=== PATIENT | female | born 1955 | race Caucasian/White ===

== ENCOUNTER 2018-08-22 22:59 | Inpatient (IN) ==
[2018-08-23 00:16] LABS: Basophils # (Auto) 0 K/mcL (0.0-0.3); Basophils % (Auto) 0.1 % (0.0-2.0); Eosinophils # (Auto) 0.1 K/mcL (0.0-0.7); Eosinophils % (Auto) 0.8 % (0.0-7.0); Granulocytes % (Auto) 75.1 % (38.0-78.0); Lymphocytes # (Auto) 2.4 K/mcL (1.5-4.8); Lymphocytes % (Auto) 17.3 % (15.5-49.0); Mean Cell Volume 91.1 fL (80.0-100.0); Mean Corpuscular HGB Conc 33.7 g/dL (31.0-36.0); Monocytes # (Auto) 0.9 K/mcL (0.1-0.9); Monocytes % (Auto) 6.7 % (1.0-12.0); Platelet Count 269 K/mcL (140-440); RBC 5.08 M/mcL (4.00-5.20); Red Cell Distribution Width 11.9 % (11.5-14.5)
--- NOTE | 2018-08-23 00:33 | Emergency Department Note ---
General Adult HPI - General Chief complaint: Cold/Flu Symptoms Stated complaint: Thinks has Pneumonia Time Seen by Provider: 08/22/18 23:08 - History of Present Illness HPI Narrative: The patient is a 63-year-old female with a history of bipolar disorder and dementia who presents today with complaint of cough, sore throat and feeling poorly. She states that she has a productive cough with phlegm that looks like "butterscotch pudding." She denies any fevers or chills, nausea or vomiting or diarrhea. States that she has lost her voice because of this. Symptoms started last Friday. She has been trying to stay hydrated at home. Has tried jjew-jty-jyiqnsp cough medications like DayQuil and Tylenol with little relief. Brought in today stating "I think I have pneumonia." She denies any underlying respiratory symptoms. - Related Data Home Medications Medication Instructions Recorded Confirmed escitalopram 10 mg tablet 20 mg PO QDAY 07/02/18 08/22/18 omeprazole 20 mg capsule,delayed 20 mg PO BID 07/02/18 08/22/18 release simvastatin 20 mg tablet 20 mg PO QPM 07/02/18 08/22/18 trazodone 100 mg tablet 50 mg PO HS 07/02/18 08/22/18 Aspirin [Lo-Dose Aspirin EC] 81 mg PO DAILY 08/22/18 08/22/18 Levothyroxine [Synthroid] 88 mcg PO QAMAC 08/22/18 08/22/18 Multivit-Min/Iron Fum/Folic AC 1 each PO DAILY 08/22/18 08/22/18 [Nrpjk-Rrvdazp-Efrfohid Tablet] RX: Meloxicam 15 mg PO DAILY 08/22/18 08/22/18 RX: Memantine [Namenda] 5 mg PO BID 08/22/18 08/22/18 lamoTRIgine [LaMICtal] 400 mg PO BID 08/22/18 08/22/18 Liothyronine [Cytomel] 5 mcg PO DAILY 08/23/18 08/23/18 Previous Rx's Medication Instructions Recorded fluticasone propionate 50 2 spray INTRANASAL QDAY #16 g 08/11/18 mcg/actuation nasal spray,suspension Allergies Allergy/AdvReac Type Severity Reaction Status Date / Time codeine AdvReac Intermediate constipation/abdominal Verified 08/11/18 16:52 cramping Review of Systems All systems ED: reviewed and negative except as stated. Past Medical History - Past Medical History Attestation: Yes: The following information was validated with the patient. Medical history: Reports: other (dementia) Psychiatric history: Reports: anxiety, depression, PTSD P[employer]ER history: Reports: non-contributory - Social History smoking status: Current every day smoker Physical Exam Limitations: no limitations, other (voice is very hoarse, whispering) General appearance: alert, in no apparent distress Head: atraumatic Eye: Present: PERRL, EOMI ENT: mucous membranes dry, other (orophyarnx is erythematous, no exudates appreciated) Neck: Present: normal inspection Chest: Present: normal inspection Respiratory: Present: normal lung sounds bilaterally. Absent: respiratory distress, rales/crackles, wheezes, stridor, accessory muscle use Cardiovascular: Present: regular rate, normal rhythm Abdominal: Present: soft, normal bowel sounds. Absent: distention, tenderness, guarding Extremities: Present: normal inspection Back: Present: normal inspection Neurological: Present: alert, oriented X3 Psychiatric: Present: normal affect, normal mood Skin: Present: warm, dry Course Course Narrative: 63-year-old with a one-week history of progressive respiratory symptoms. She comes in with an oxygen saturation of 84% on room air. Requiring 2 L of oxygen via nasal cannula to stay above 90%. Lung exam is actually very clear. Chest x-ray is ordered. IV fluids ordered. Flu swab ordered. Lab work ordered - Reevaluation(s) Reevaluation #1: Patient's white count is elevated to 13.7. Potassium was only 2.9. A potassium rider 40 mEq was started IV. Interestingly the patient's pro-calcitonin is 118 but her lactic was 1.3. She continues to be hypoxic requiring several liters of oxygen via nasal cannula. I personally reviewed the chest x-ray and she does have bronchial wall thickening and congestion appreciated in the right hilar area which I feel look suspicious for a right middle lobe infiltrate. I don't have a previous x-ray to compare this to. With her leukocytosis, hypoxia and chest x-ray that she warrants inpatient admission for community-acquired pneumonia and we'll start the patient on azithromycin and Rocephin. This was discussed with the hospitalist who graciously agreed to admit the patient. Vital Signs Temperature 97.9 F 08/22/18 22:59 Pulse Rate 92 H 08/22/18 22:59 Respiratory Rate 22 08/22/18 22:59 Blood Pressure 130/71 08/22/18 22:59 Pulse Oximetry (%) 84 L 08/22/18 22:59 Temperature 97.9 F 08/22/18 22:59 Pulse Rate 79 08/23/18 00:29 Respiratory Rate 22 08/22/18 22:59 Blood Pressure 130/71 08/22/18 22:59 Pulse Oximetry (%) 88 L 08/23/18 00:29 Medical Decision Making - MDM Narrative Medical decision making narrative: Community-acquired pneumonia and hypoxia - Lab Data Lab results reviewed: Yes I reviewed the patient's lab results. Result diagrams: 08/22/18 23:35 08/22/18 23:35 Lab Results 08/22/18 08/22/18 08/22/18 Range/Units 23:35 23:35 23:35 WBC 13.7 H (4.5-11.0) K/mcL RBC 5.08 (4.00-5.20) M/mcL Hgb 15.6 H (12.0-15.0) g/dL Hct 46.3 (36.0-48.0) % MCV 91.1 (80.0-100.0) fL MCH 30.7 (26.0-34.0) pg MCHC 33.7 (31.0-36.0) g/dL RDW 11.9 (11.5-14.5) % Plt Count 269 (140-440) K/mcL MPV 7.7 (7.4-10.4) fL Gran % 75.1 (38.0-78.0) % Lymph % (Auto) 17.3 (15.5-49.0) % [place] % (Auto) 6.7 (1.0-12.0) % Eos % (Auto) 0.8 (0.0-7.0) % Baso % (Auto) 0.1 (0.0-2.0) % Gran # 10.3 H (1.8-8.0) K/mcL Lymph # (Auto) 2.4 (1.5-4.8) K/mcL [place] # (Auto) 0.9 (0.1-0.9) K/mcL Eos # (Auto) 0.1 (0.0-0.7) K/mcL Baso # (Auto) 0 (0.0-0.3) K/mcL VBG Lactic Acid (0.5-2.0) mmol/L Sodium 134 (133-145) mmol/L Potassium 2.9 L* (3.3-5.1) mmol/L Chloride 94 L (96-108) mmol/L Carbon Dioxide 27 (22-30) mmol/L Anion Gap 13.0 (8-16) BUN 11 (8-23) mg/dl Creatinine 0.6 (0.6-1.1) mg/dl GFR Calculation 96 Glucose 150 H (70-105) mg/dL Calcium 8.4 L (8.6-10.4) mg/dl Total Bilirubin 0.4 (0.0-1.0) mg/dL AST 29 (0-37) U/l ALT 26 (0-40) U/l Alkaline Phosphatase 128 H (39-117) U/L Total Protein 6.2 (5.9-8.4) gm/dL Albumin 3.1 L (3.2-5.2) gm/dL Globulin 3.1 (2.2-3.7) gm/dL Albumin/Globulin Ratio 1.0 (1.0-2.3) Procalcitonin 118.31 (<0.10) ng/mL 08/22/18 Range/Units 23:35 WBC (4.5-11.0) K/mcL RBC (4.00-5.20) M/mcL Hgb (12.0-15.0) g/dL Hct (36.0-48.0) % MCV (80.0-100.0) fL MCH (26.0-34.0) pg MCHC (31.0-36.0) g/dL RDW (11.5-14.5) % Plt Count (140-440) K/mcL MPV (7.4-10.4) fL Gran % (38.0-78.0) % Lymph % (Auto) (15.5-49.0) % [place] % (Auto) (1.0-12.0) % Eos % (Auto) (0.0-7.0) % Baso % (Auto) (0.0-2.0) % Gran # (1.8-8.0) K/mcL Lymph # (Auto) (1.5-4.8) K/mcL [place] # (Auto) (0.1-0.9) K/mcL Eos # (Auto) (0.0-0.7) K/mcL Baso # (Auto) (0.0-0.3) K/mcL VBG Lactic Acid 1.3 (0.5-2.0) mmol/L Sodium (133-145) mmol/L Potassium (3.3-5.1) mmol/L Chloride (96-108) mmol/L Carbon Dioxide (22-30) mmol/L Anion Gap (8-16) BUN (8-23) mg/dl Creatinine (0.6-1.1) mg/dl GFR Calculation Glucose (70-105) mg/dL Calcium (8.6-10.4) mg/dl Total Bilirubin (0.0-1.0) mg/dL AST (0-37) U/l ALT (0-40) U/l Alkaline Phosphatase (39-117) U/L Total Protein (5.9-8.4) gm/dL Albumin (3.2-5.2) gm/dL Globulin (2.2-3.7) gm/dL Albumin/Globulin Ratio (1.0-2.3) Procalcitonin (<0.10) ng/mL Disposition Pt seen by [facility]/PA only: No Clinical Impression: Hypoxia, Hypokalemia, CAP (community acquired pneumonia) Disposition: Xfer As Inpt ([facility]) Condition: Serious
[2018-08-23 00:47] LABS: ALT/SGPT 26 U/l (0-40); Albumin 3.1 gm/dL (3.2-5.2); Alkaline Phosphatase 128 U/L (39-117); Blood Urea Nitrogen 11 mg/dl (8-23)
[2018-08-23] MEDS ORDERED: POTASSIUM CHLORIDE 40 MEQ in DEXTROSE 5% IN WATER 500 ML IV ONE (00:47)
[2018-08-23] MEDS ORDERED: POTASSIUM CHLORIDE 20 MEQ TABLET PO ONE ×2 (00:47→08:58)
[2018-08-23] MEDS ORDERED: cefTRIAXone 1 GM VIAL IV ONE (01:37)
[2018-08-23] MEDS ORDERED: 0.9 % SODIUM CHLORIDE 1,000 ML IV ONE (01:37)
[2018-08-23] MEDS ORDERED: POTASSIUM CHLORIDE 20 MEQ/10 ML VIAL IV ONE (01:38)
[2018-08-23] MEDS ORDERED: AZITHROMYCIN 250 MG TABLET PO ONE (01:38)
[2018-08-23] MEDS ORDERED: ONDANSETRON 4 MG/2 ML VIAL IV PRN ×2 (02:10→09:09)
[2018-08-23] MEDS ORDERED: ACETAMINOPHEN 500 MG TABLET PO PRN (02:12)
[2018-08-23] MEDS ORDERED: 0.9 % SODIUM CHLORIDE 1,000 ML IV SCH (02:15)
[2018-08-23] MEDS ORDERED: cefTRIAXone 1 GM VIAL ONE (03:06)
--- NOTE | 2018-08-23 05:38 | XRay Report ---
CLINICAL INFORMATION: hypoxia, cough x 1 week COMPARISON: None. FINDINGS: Small hiatal hernia noted. Cardiomediastinal silhouette and pulmonary vasculature are, otherwise, normal. The lung volumes are elevated and there moderate wall thickening of central bronchi suggesting bronchitis. Mild stranding airspace disease, in both infrahilar regions, is likely atelectasis or scar. No effusions. Bones and soft tissues are normal. IMPRESSION: Bronchitis changes with stranding airspace disease in the infrahilar regions likely atelectasis. Aspiration is possible, but less likely Small hiatal hernia Interpreted and Authenticated by: Capo Herrera 08/23/18
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
[2018-08-23] MEDS ORDERED: PROCHLORPERAZINE 10 MG/2 ML VIAL IV PRN (09:09)
[2018-08-23] MEDS ORDERED: ENALAPRILAT 1.25 MG/ML VIAL IV PRN (09:09)
[2018-08-23] MEDS ORDERED: cefTRIAXone 1 GM in DEXTROSE 5% IN WATER 50 ML IV SCH (09:09)
[2018-08-23] MEDS: ESCITALOPRAM 20 MG TABLET PO SCH (11:17)
[2018-08-23] MEDS: MEMANTINE 10 MG TABLET PO SCH ×2 (11:18→21:00)
[2018-08-23] MEDS: OMEPRAZOLE 20 MG CAPSULE PO SCH ×2 (11:18→20:59)
[2018-08-23] MEDS: ASPIRIN 81 MG TAB.CHEW PO SCH (11:20)
[2018-08-23] MEDS: DOCUSATE SODIUM 100 MG CAPSULE PO SCH ×2 (11:20→21:00)
[2018-08-23] MEDS: ENOXAPARIN 30 MG/0.3 ML SYRINGE SQ SCH (11:23)
[2018-08-23] MEDS: LIOTHYRONINE 5 MCG TABLET PO SCH (11:24)
[2018-08-23] MEDS: 0.9 % SODIUM CHLORIDE 1,000 ML IV SCH ×2 (11:28→14:28)
[2018-08-23] MEDS: IPRATROPIUM/ALBUTEROL 3 ML AMPUL.NEB NEB SCH ×2 (12:53→18:35)
[2018-08-23] MEDS: 0.9 % SODIUM CHLORIDE 10 ML SYRINGE IV SCH ×2 (13:06→21:00)
[2018-08-23] MEDS: lamoTRIgine 100 MG TABLET PO SCH ×2 (14:01→21:00)
[2018-08-23] MEDS: cefTRIAXone 1 GM VIAL IV SCH (17:51)
[2018-08-23] MEDS: AZITHROMYCIN 500 MG in DEXTROSE 5% IN WATER 250 ML IV SCH (17:52)
[2018-08-23] MEDS: SIMVASTATIN 20 MG TABLET PO SCH (20:59)
[2018-08-23] MEDS: traZODone HCL 100 MG TABLET PO SCH (21:00)
[2018-08-24] MEDS: IPRATROPIUM/ALBUTEROL 3 ML AMPUL.NEB NEB SCH ×4 (02:41→18:29)
[2018-08-24] MEDS: 0.9 % SODIUM CHLORIDE 10 ML SYRINGE IV SCH ×3 (04:39→20:25)
[2018-08-24 05:38] LABS: Basophils # (Auto) 0 K/mcL (0.0-0.3); Basophils % (Auto) 0.2 % (0.0-2.0); Eosinophils # (Auto) 0 K/mcL (0.0-0.7); Eosinophils % (Auto) 0.1 % (0.0-7.0); Granulocytes % (Auto) 68.6 % (38.0-78.0); Lymphocytes % (Auto) 23.6 % (15.5-49.0); Mean Cell Volume 94.5 fL (80.0-100.0); Mean Corpuscular HGB Conc 33.1 g/dL (31.0-36.0); Monocytes # (Auto) 0.9 K/mcL (0.1-0.9); Monocytes % (Auto) 7.5 % (1.0-12.0); Platelet Count 264 K/mcL (140-440); Red Cell Distribution Width 12.8 % (11.5-14.5)
[2018-08-24 06:19] LABS: ALT/SGPT 24 U/l (0-40); Albumin 2.7 gm/dL (3.2-5.2); Alkaline Phosphatase 103 U/L (39-117); Bilirubin,Direct < 0.2 mg/dL (0.0-0.3); Blood Urea Nitrogen 3 mg/dl (8-23); Gamma Glutamyl Transpeptidase 29 U/L (5-36); Uric Acid 3.7 mg/dL (2.5-8.0)
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
[2018-08-24] MEDS: LEVOTHYROXINE 88 MCG TABLET PO SCH (07:46)
--- NOTE | 2018-08-24 07:50 | XRay Report ---
CLINICAL INFORMATION: pna COMPARISON: 08/23/2018 FINDINGS: The heart is borderline enlarged accentuated by lordotic positioning and rotation. Small hiatal hernia again noted. The mediastinum and pulmonary vessels are normal. Bronchitis changes again noted. Small infiltrate has developed in the right base. Mild atelectasis in the left base again noted.. Small right pleural effusion noted IMPRESSION: Small developing right basilar infiltrate. Left basilar atelectasis Small hiatal hernia Underlying chronic bronchitis Interpreted and Authenticated by: Capo Herrera 08/24/18
[2018-08-24] MEDS: ESCITALOPRAM 20 MG TABLET PO SCH (09:00)
[2018-08-24] MEDS: lamoTRIgine 100 MG TABLET PO SCH ×2 (09:01→20:25)
[2018-08-24] MEDS: MELOXICAM 7.5 MG TABLET PO SCH (09:01)
[2018-08-24] MEDS: MEMANTINE 10 MG TABLET PO SCH ×2 (09:02→20:25)
[2018-08-24] MEDS: OMEPRAZOLE 20 MG CAPSULE PO SCH ×2 (09:02→20:25)
[2018-08-24] MEDS: DOCUSATE SODIUM 100 MG CAPSULE PO SCH ×2 (09:03→20:24)
[2018-08-24] MEDS: ASPIRIN 81 MG TAB.CHEW PO SCH (09:03)
[2018-08-24] MEDS: predniSONE 20 MG TABLET PO SCH (09:03)
[2018-08-24] MEDS: AZITHROMYCIN 500 MG in DEXTROSE 5% IN WATER 250 ML IV SCH (09:04)
[2018-08-24] MEDS: LIOTHYRONINE 5 MCG TABLET PO SCH (09:04)
[2018-08-24] MEDS: ENOXAPARIN 30 MG/0.3 ML SYRINGE SQ SCH (09:49)
[2018-08-24] MEDS: cefTRIAXone 1 GM VIAL IV SCH (10:29)
[2018-08-24] MEDS: traZODone HCL 100 MG TABLET PO SCH (20:25)
[2018-08-24] MEDS: SIMVASTATIN 20 MG TABLET PO SCH (20:25)
[2018-08-25] MEDS: IPRATROPIUM/ALBUTEROL 3 ML AMPUL.NEB NEB SCH ×4 (00:30→18:32)
[2018-08-25] MEDS: 0.9 % SODIUM CHLORIDE 10 ML SYRINGE IV SCH ×3 (05:39→20:51)
[2018-08-25 06:38] LABS: Basophils # (Auto) 0 K/mcL (0.0-0.3); Basophils % (Auto) 0.1 % (0.0-2.0); Eosinophils # (Auto) 0 K/mcL (0.0-0.7); Eosinophils % (Auto) 0.1 % (0.0-7.0); Granulocytes % (Auto) 65.1 % (38.0-78.0); Lymphocytes % (Auto) 26.4 % (15.5-49.0); Mean Cell Volume 95.2 fL (80.0-100.0); Monocytes % (Auto) 8.3 % (1.0-12.0); Platelet Count 298 K/mcL (140-440); RBC 4.22 M/mcL (4.00-5.20)
[2018-08-25 07:10] LABS: ALT/SGPT 25 U/l (0-40); Albumin 2.8 gm/dL (3.2-5.2); Albumin/Globulin Ratio 0.9 (1.0-2.3); Alkaline Phosphatase 96 U/L (39-117); Bilirubin,Direct < 0.2 mg/dL (0.0-0.3); Blood Urea Nitrogen 5 mg/dl (8-23); Gamma Glutamyl Transpeptidase 27 U/L (5-36); Uric Acid 3.7 mg/dL (2.5-8.0)
[2018-08-25] MEDS: LEVOTHYROXINE 88 MCG TABLET PO SCH (07:31)
[2018-08-25] MEDS ORDERED: POTASSIUM CHLORIDE 20 MEQ PACKET PO ONE (07:45)
[2018-08-25] MEDS: predniSONE 20 MG TABLET PO SCH (07:55)
[2018-08-25] MEDS: LIOTHYRONINE 5 MCG TABLET PO SCH (09:03)
[2018-08-25] MEDS: cefTRIAXone 1 GM VIAL IV SCH (09:04)
[2018-08-25] MEDS: ESCITALOPRAM 20 MG TABLET PO SCH (09:04)
[2018-08-25] MEDS: MEMANTINE 10 MG TABLET PO SCH ×2 (09:04→20:50)
[2018-08-25] MEDS: ENOXAPARIN 30 MG/0.3 ML SYRINGE SQ SCH (09:04)
[2018-08-25] MEDS: OMEPRAZOLE 20 MG CAPSULE PO SCH ×2 (09:04→20:50)
[2018-08-25] MEDS: MELOXICAM 7.5 MG TABLET PO SCH (09:05)
[2018-08-25] MEDS: lamoTRIgine 100 MG TABLET PO SCH ×2 (09:05→20:50)
[2018-08-25] MEDS: ASPIRIN 81 MG TAB.CHEW PO SCH (09:05)
[2018-08-25] MEDS: DOCUSATE SODIUM 100 MG CAPSULE PO SCH ×2 (09:05→20:51)
[2018-08-25] MEDS ORDERED: POTASSIUM CHLORIDE 20 MEQ TABLET PO ONE (10:02)
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
[2018-08-25] MEDS: SIMVASTATIN 20 MG TABLET PO SCH (20:50)
[2018-08-25] MEDS: traZODone HCL 100 MG TABLET PO SCH (20:50)
[2018-08-26] MEDS: IPRATROPIUM/ALBUTEROL 3 ML AMPUL.NEB NEB SCH ×4 (00:21→19:15)
[2018-08-26] MEDS: 0.9 % SODIUM CHLORIDE 10 ML SYRINGE IV SCH ×3 (05:52→21:36)
[2018-08-26 06:59] LABS: ALT/SGPT 32 U/l (0-40); Albumin/Globulin Ratio 1.1 (1.0-2.3); Alkaline Phosphatase 91 U/L (39-117); Bilirubin,Direct < 0.2 mg/dL (0.0-0.3); Blood Urea Nitrogen 6 mg/dl (8-23); Gamma Glutamyl Transpeptidase 33 U/L (5-36); Uric Acid 3.2 mg/dL (2.5-8.0)
[2018-08-26] MEDS: LEVOTHYROXINE 88 MCG TABLET PO SCH (07:13)
[2018-08-26 07:23] LABS: Basophils # (Auto) 0 K/mcL (0.0-0.3); Basophils % (Auto) 0.4 % (0.0-2.0); Eosinophils # (Auto) 0.1 K/mcL (0.0-0.7); Eosinophils % (Auto) 0.7 % (0.0-7.0); Granulocytes % (Auto) 58.2 % (38.0-78.0); Lymphocytes # (Auto) 3.3 K/mcL (1.5-4.8); Lymphocytes % (Auto) 31.4 % (15.5-49.0); Mean Cell Volume 92.6 fL (80.0-100.0); Monocytes % (Auto) 9.3 % (1.0-12.0); Platelet Count 326 K/mcL (140-440); RBC 4.07 M/mcL (4.00-5.20); Red Cell Distribution Width 12.1 % (11.5-14.5)
[2018-08-26] MEDS: predniSONE 20 MG TABLET PO SCH (08:30)
[2018-08-26] MEDS: OMEPRAZOLE 20 MG CAPSULE PO SCH ×2 (09:35→21:34)
[2018-08-26] MEDS: ASPIRIN 81 MG TAB.CHEW PO SCH (09:35)
[2018-08-26] MEDS: DOCUSATE SODIUM 100 MG CAPSULE PO SCH ×2 (09:36→21:34)
[2018-08-26] MEDS: ESCITALOPRAM 20 MG TABLET PO SCH (09:37)
[2018-08-26] MEDS: MELOXICAM 7.5 MG TABLET PO SCH (09:37)
[2018-08-26] MEDS: MEMANTINE 10 MG TABLET PO SCH ×2 (09:38→21:35)
[2018-08-26] MEDS: lamoTRIgine 100 MG TABLET PO SCH ×2 (09:38→21:34)
[2018-08-26] MEDS: LIOTHYRONINE 5 MCG TABLET PO SCH (09:40)
[2018-08-26] MEDS: ENOXAPARIN 30 MG/0.3 ML SYRINGE SQ SCH (09:45)
[2018-08-26] MEDS: cefTRIAXone 1 GM VIAL IV SCH (09:45)
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
[2018-08-26] MEDS: SIMVASTATIN 20 MG TABLET PO SCH (21:34)
[2018-08-26] MEDS: traZODone HCL 100 MG TABLET PO SCH (21:34)
[2018-08-26] MEDS: MAGNESIUM HYDROXIDE 30 ML ORAL.SUSP PO PRN (21:35)
[2018-08-27] MEDS: IPRATROPIUM/ALBUTEROL 3 ML AMPUL.NEB NEB SCH ×4 (00:32→19:27)
[2018-08-27] MEDS: 0.9 % SODIUM CHLORIDE 10 ML SYRINGE IV SCH ×4 (05:40→21:32)
[2018-08-27 07:07] LABS: Basophils # (Auto) 0 K/mcL (0.0-0.3); Basophils % (Auto) 0.1 % (0.0-2.0); Eosinophils # (Auto) 0.1 K/mcL (0.0-0.7); Eosinophils % (Auto) 0.5 % (0.0-7.0); Lymphocytes # (Auto) 4.2 K/mcL (1.5-4.8); Lymphocytes % (Auto) 30.2 % (15.5-49.0); Mean Cell Volume 95.2 fL (80.0-100.0); Mean Corpuscular HGB Conc 32.2 g/dL (31.0-36.0); Monocytes # (Auto) 1.1 K/mcL (0.1-0.9); Monocytes % (Auto) 8.2 % (1.0-12.0); Platelet Count 389 K/mcL (140-440); RBC 4.75 M/mcL (4.00-5.20); Red Cell Distribution Width 13.1 % (11.5-14.5)
[2018-08-27 07:43] LABS: ALT/SGPT 43 U/l (0-40); Albumin 3.4 gm/dL (3.2-5.2); Albumin/Globulin Ratio 1.1 (1.0-2.3); Alkaline Phosphatase 109 U/L (39-117); Bilirubin,Direct < 0.2 mg/dL (0.0-0.3); Blood Urea Nitrogen 9 mg/dl (8-23); Gamma Glutamyl Transpeptidase 40 U/L (5-36); Uric Acid 2.9 mg/dL (2.5-8.0)
[2018-08-27] MEDS: predniSONE 20 MG TABLET PO SCH (08:12)
[2018-08-27] MEDS: LEVOTHYROXINE 88 MCG TABLET PO SCH (08:13)
--- NOTE | 2018-08-27 08:22 | XRay Report ---
CLINICAL INFORMATION: pneumonia follow up COMPARISON: 08/24/2018 FINDINGS: Small hiatal hernia again noted. The heart is borderline enlarged, but unchanged. Mediastinum and pulmonary vessels are unremarkable. COPD changes with moderate perihilar and infrahilar scarring noted. There are now small patchy bilateral infiltrates in both medial lower lobes IMPRESSION: Small patchy lateral lower lobe infiltrates Moderate COPD with perihilar and infrahilar scarring. Small hiatal hernia. Consider the possibility of recurrent aspiration resulting in chronic, recurrent bibasilar infiltrates. Formal swallowing function assessment might be considered Interpreted and Authenticated by: Capo Herrera 08/27/18
[2018-08-27] MEDS: ENOXAPARIN 30 MG/0.3 ML SYRINGE SQ SCH (10:05)
[2018-08-27] MEDS: ESCITALOPRAM 20 MG TABLET PO SCH (10:06)
[2018-08-27] MEDS: MELOXICAM 7.5 MG TABLET PO SCH (10:06)
[2018-08-27] MEDS: OMEPRAZOLE 20 MG CAPSULE PO SCH (10:06)
[2018-08-27] MEDS: MEMANTINE 10 MG TABLET PO SCH ×2 (10:07→21:22)
[2018-08-27] MEDS: ASPIRIN 81 MG TAB.CHEW PO SCH (10:07)
[2018-08-27] MEDS: lamoTRIgine 100 MG TABLET PO SCH ×2 (10:08→21:21)
[2018-08-27] MEDS: DOCUSATE SODIUM 100 MG CAPSULE PO SCH ×2 (10:09→21:22)
[2018-08-27] MEDS: LIOTHYRONINE 5 MCG TABLET PO SCH (10:10)
[2018-08-27] MEDS: cefTRIAXone 1 GM VIAL IV SCH (10:10)
[2018-08-27] MEDS: MAGNESIUM HYDROXIDE 30 ML ORAL.SUSP PO PRN (10:45)
[2018-08-27] MEDS: metroNIDAZOLE 500 MG/100 ML BAG IV SCH ×2 (15:28→21:21)
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
[2018-08-27] MEDS: ACETAMINOPHEN 500 MG TABLET PO PRN (20:22)
[2018-08-27] MEDS ORDERED: OMEPRAZOLE 20 MG CAPSULE PO ONE (20:35)
[2018-08-27] MEDS: traZODone HCL 100 MG TABLET PO SCH ×3 (21:21→23:22)
[2018-08-27] MEDS: SIMVASTATIN 20 MG TABLET PO SCH (21:22)
[2018-08-28] MEDS: IPRATROPIUM/ALBUTEROL 3 ML AMPUL.NEB NEB SCH ×4 (01:14→19:08)
[2018-08-28] MEDS: metroNIDAZOLE 500 MG/100 ML BAG IV SCH ×3 (05:56→21:33)
[2018-08-28] MEDS: 0.9 % SODIUM CHLORIDE 10 ML SYRINGE IV SCH ×3 (06:00→21:33)
[2018-08-28 06:53] LABS: Basophils # (Auto) 0 K/mcL (0.0-0.3); Basophils % (Auto) 0.1 % (0.0-2.0); Eosinophils # (Auto) 0.1 K/mcL (0.0-0.7); Eosinophils % (Auto) 0.5 % (0.0-7.0); Granulocytes % (Auto) 64.7 % (38.0-78.0); Lymphocytes % (Auto) 26.2 % (15.5-49.0); Mean Cell Volume 95.7 fL (80.0-100.0); Mean Corpuscular HGB Conc 32.4 g/dL (31.0-36.0); Monocytes % (Auto) 8.5 % (1.0-12.0); Platelet Count 376 K/mcL (140-440); RBC 4.51 M/mcL (4.00-5.20); Red Cell Distribution Width 12.7 % (11.5-14.5)
[2018-08-28 07:11] LABS: ALT/SGPT 39 U/l (0-40); Albumin 3.3 gm/dL (3.2-5.2); Albumin/Globulin Ratio 1.2 (1.0-2.3); Alkaline Phosphatase 91 U/L (39-117); Bilirubin,Direct < 0.2 mg/dL (0.0-0.3); Blood Urea Nitrogen 11 mg/dl (8-23); Gamma Glutamyl Transpeptidase 38 U/L (5-36); Uric Acid 2.7 mg/dL (2.5-8.0)
[2018-08-28] MEDS: OMEPRAZOLE 20 MG CAPSULE PO SCH (07:12)
[2018-08-28] MEDS: LEVOTHYROXINE 88 MCG TABLET PO SCH (07:22)
[2018-08-28] MEDS: MELOXICAM 7.5 MG TABLET PO SCH (08:19)
[2018-08-28] MEDS: lamoTRIgine 100 MG TABLET PO SCH ×2 (08:19→21:10)
[2018-08-28] MEDS: MEMANTINE 10 MG TABLET PO SCH ×2 (08:19→21:11)
[2018-08-28] MEDS: ASPIRIN 81 MG TAB.CHEW PO SCH (08:20)
[2018-08-28] MEDS: DOCUSATE SODIUM 100 MG CAPSULE PO SCH ×2 (08:20→21:11)
[2018-08-28] MEDS: LIOTHYRONINE 5 MCG TABLET PO SCH (08:20)
[2018-08-28] MEDS: ENOXAPARIN 30 MG/0.3 ML SYRINGE SQ SCH (08:20)
[2018-08-28] MEDS: cefTRIAXone 1 GM VIAL IV SCH (08:20)
[2018-08-28] MEDS: ESCITALOPRAM 20 MG TABLET PO SCH (08:20)
[2018-08-28] MEDS: predniSONE 20 MG TABLET PO SCH (08:20)
[2018-08-28] MEDS: ACETAMINOPHEN 500 MG TABLET PO PRN (13:40)
--- NOTE | 2018-08-28 14:28 | Internal Med Progress Note ---
Medical - PN: Subj Patient information: Note initiated : 08/28/18 at 2:26 pm Service Date, if different from initiated Date: [] Patient: Charlene Poole a 63 y/o F admitted on 08/23/18 for Thinks has Pneumonia. Chief Complaint: [] Interval history: Ms. Poole is a 63 year old F Who presents the ED after a week worth of shortness of breath coughing headache weakness. He states that hit her hard on Friday with body aches headache and the development of the cough productive of thick brown sputum. She has had shortn ess of breath as well. Her symptoms continued through the week with no improvement just worsening felt progressively weak. She feels an open time she started to feel better and then got worse she just stayed bad. Denies fever chills. No nausea vomiting diarrhea chest pain. In the ED she was found to be hypoxic at 84% on room air, with an elevated white blood cell count and pro-calcitonin. Vital signs are stable other than the oxygen saturations. Chest x-ray with interstitial filtrates. 08/24 Slept well. Productive cough. Shortness of breath slowly improving. Infectious markers improving 08/25 Patient seen and examined, no acute overnight events, feels better since admission. Labs are stable but is still on oxygen 08/26 pt seen eamined feels better, no new complaints still weak and remains on oxygen 08/27 Chest x-ray done today shows bibasilar infiltrates, recurrent aspiration. I discussed the case with the speech therapist the patient does not have any swallowing difficulties and is able to swallow quite well. There is a suspicion that because of a hiatal hernia she is having recurrent aspiration from her GERD. Patient is on proton pump inhibitor Educated the proper use of proton pump inhibitors, 30 minutes before a meal. Advised her to keep the head end of the bed elevated. 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 Pt breathing is unchanged, she remains on oxygen wbc trending down. Pertinent ROS: Denies headache, present dizziness Denies chest pain, palpitations Denies cough , shortness of breath improving. Denies abdominal pain, nausea or vomiting. - Constitutional Vitals: Vital Signs Temp Pulse Resp BP Pulse Ox 98.4 F 84 16 110/63 91 08/28/18 12:00 08/28/18 14:05 08/28/18 14:05 08/28/18 12:00 08/28/18 12:00 Period Temp Pulse Resp BP Sys/Chan Pulse Ox Last 24 Hr 97.5 F-98.4 F 60-89 16-25 105-153/56-82 90-93 Intake and Output 08/28/18 08/28/18 08/28/18 05:59 13:59 21:59 Intake Total 1100 340 Output Total 300 575 300 Balance 800 -235 -300 Weight 123 lb Patient Weight 08/29/18 05:59 Weight 123 lb Intake & Output: Intake & Output 08/28/18 08/28/18 08/28/18 05:59 13:59 21:59 Intake Total 1100 340 Output Total 300 575 300 Balance 800 -235 -300 Weight 123 lb Intake: IV 100 100 Oral 1000 240 Output: Urine Catheter Amount 225 Void Amount 300 350 300 Other: Meal Breakfast Percent of Meal Consumed 100% Feeding Ability Assist with Tray Set Up Urine Appearance Clear Clear Urine Color Bright Yellow Light Kirstin Pale Urine Odor Normal # Voids 4 Exam: Constitutional; Afebrile, cooperative, alert, not in distress. Respiratory system: Air Entry equal on both sides, No crackles or wheezing, no rhonchi. CVS- Rate rhythm regular, S1,S2 heard, no gallop, no rub. Abdomen- Soft nontender abdomen, no organomegaly, no tenderness, no guarding or rigidity, METER TESTER POLYPHASE- AOOx3, moving all extremities, no gross focal deficit noted. pupils reactive bilaterally, no sensory or motor deficit noted, CN normal Left ear, mild wax, tympanic membrane not fully visualized, but does move with valsava manouver, no pus or erythema noted. Medical - PN: Obj Da - Labs CBC & Chem 7: 08/28/18 04:25 08/28/18 04:25 Labs: Abnormal Lab Results 08/28/18 08/28/18 08/27/18 04:25 04:25 04:20 WBC 11.4 H MPV 6.9 L Gran # [place] # (Auto) 1.0 H Carbon Dioxide 33 H 34 H BUN Magnesium 2.6 H 2.7 H GGT 38 H 40 H ALT 43 H Lactate Dehydrogenase 266 H 255 H Total Protein Albumin 08/27/18 08/26/18 08/26/18 04:20 04:35 04:35 WBC 13.9 H MPV 7.1 L 7.3 L Gran # 8.5 H [place] # (Auto) 1.1 H 1.0 H Carbon Dioxide 34 H BUN 6 L Magnesium GGT ALT Lactate Dehydrogenase Total Protein 5.7 L Albumin 3.0 L Meds: Medications Acetaminophen (Tylenol) 500 mg PO Q4-6HP PRN PRN Reason: PAIN/FEVER > 101 Last Admin: 08/28/18 13:40 Dose: 500 mg Documented by: Albuterol/Ipratropium (Duoneb) 3 ml NEB Q6HRT [facility] Last Admin: 08/28/18 14:05 Dose: 3 ml Documented by: Aspirin (Aspirin) 81 mg PO DAILY [facility] Last Admin: 08/28/18 08:20 Dose: 81 mg Documented by: Ceftriaxone Sodium (Rocephin) 1 gm IV DAILY [facility] Last Admin: 08/28/18 08:20 Dose: 1 gm Documented by: Docusate Sodium (Colace) 100 mg PO BID [facility] Last Admin: 08/28/18 08:20 Dose: 100 mg Documented by: Enalaprilat (Vasotec) 0 mg IV Q6HP PRN PRN Reason: Hypertension Enoxaparin Sodium (Lovenox) 30 mg SQ DAILY [facility] Last Admin: 08/28/18 08:20 Dose: 30 mg Documented by: Escitalopram Oxalate (Lexapro) 20 mg PO QDAY [facility] Last Admin: 08/28/18 08:20 Dose: 20 mg Documented by: Metronidazole (Flagyl) 500 mg in 100 mls @ 100 mls/hr IV Q8H [facility]; Protocol Last Infusion: 08/28/18 07:23 Dose: Infused Documented by: Lamotrigine (Lamictal) 200 mg PO BID [facility] Last Admin: 08/28/18 08:19 Dose: 200 mg Documented by: Levothyroxine Sodium (Synthroid) 88 mcg PO QAMAC [facility] Last Admin: 08/28/18 07:22 Dose: 88 mcg Documented by: Liothyronine Sodium (Cytomel) 5 mcg PO DAILY [facility] Last Admin: 08/28/18 08:20 Dose: 5 mcg Documented by: Magnesium Hydroxide (Milk Of Magnesia) 30 ml PO DAILYP PRN PRN Reason: Constipation Last Admin: 08/27/18 10:45 Dose: 30 ml Documented by: Meclizine HCl (Antivert) 12.5 mg PO TID [facility] Meloxicam (Mobic) 15 mg PO DAILY [facility] Last Admin: 08/28/18 08:19 Dose: 15 mg Documented by: Memantine (Namenda) 5 mg PO BID [facility] Last Admin: 08/28/18 08:19 Dose: 5 mg Documented by: Omeprazole (Prilosec) 40 mg PO ACB [facility] Last Admin: 08/28/18 07:12 Dose: 40 mg Documented by: Ondansetron HCl (Zofran) 4 mg IV Q4-6HP PRN PRN Reason: Nausea And Vomiting Prochlorperazine (Compazine) 5 mg IV Q4HP PRN PRN Reason: Nausea And Vomiting Simvastatin (Zocor) 20 mg PO QPM [facility] Last Admin: 08/27/18 21:22 Dose: 20 mg Documented by: Sodium Chloride (Saline Flush) 10 ml IV Q8 [facility] Last Admin: 08/28/18 06:00 Dose: 10 ml Documented by: Trazodone HCl (Desyrel) 100 mg PO HS [facility] Last Admin: 08/27/18 22:56 Dose: 100 mg Documented by: Medical - PN: A/P - Time Spent With Patient Total time spent is greater than 50% in coordination of care (as documented) at patient's floor/unit and/or counseling patient: - Narrative A/P Narrative: A: *Pneumonia: cxr rith RLL infiltrate *Aspiration pneumonia *Acute hypoxic respiratory failure: -she states her O2 sats typically run 92-93% at home on room air -required 4L NC initially in ED, now down to 1-2 L *Likely COPD based on smoking history and imaging: *Hypokalemia: resolved *Hypothyroidism *Tobacco abuse *GERD *Depression/anxiety/PTSD *Vertigo P: Repeat CXR shows aspiration, Added flagyl to her regime with improvement in wbc count. Head CT for dizziness given first episode, likely bppv, Head end elevated Prilosec now 40mg before breakfast Continue to wean off oxygen as tolerated aggressive pulmonary toilet smoking cessation strongly reinforced Cultures neg so far continue steroids, duonebs for now, D/c once off oxygen, continue home meds. Repeat X ray chest in AM, if remains stable, the patient will likely need oxygen for life, given her respiratory exam is normal. DVT [facility] Medical - PN: Qual - VTE Deep Vein Thrombosis/Pulmonary Embolism Present on Admission: No
--- NOTE | 2018-08-28 14:35 | Cat Scan Report ---
CLINICAL INFORMATION: Dizziness COMPARISON: None. TECHNIQUE: 2.5 mm helical slices were obtained in the skull base to vertex. Following reconstruction, axial reformatted images were reviewed at bone and parenchymal windows. The exam was performed using radiation dose optimization techniques including, but not limited to, automated exposure control, adjustment of the mA and/or kV according to patient size and use of iterative reconstruction technique. FINDINGS: The ventricles, sulci, fissures, and cisterns are normal in size and configuration for age. No extra-axial fluid collections are identified. Mild patchy chronic ischemic changes in the deep cerebral white matter are expected for age. The cerebrum, brainstem and cerebellum are, otherwise, unremarkable. There is no evidence of hemorrhage, mass effect, or edema. Bone windows show no osseous abnormality. Opacification of a single posterior left ethmoid air cell noted with moderate mucosal thickening posterior right ethmoid sinus IMPRESSION: Mild atrophy and minimal chronic ischemic changes throughout white matter - as expected for age. Posterior ethmoid sinusitis Interpreted and Authenticated by: Capo Herrera 08/28/18
[2018-08-28] MEDS: MECLIZINE 25 MG TABLET PO SCH ×2 (15:17→21:10)
[2018-08-28] MEDS ORDERED: OMEPRAZOLE 20 MG CAPSULE PO ONE (20:35)
[2018-08-28] MEDS: traZODone HCL 100 MG TABLET PO SCH (21:10)
[2018-08-28] MEDS: SIMVASTATIN 20 MG TABLET PO SCH (21:10)
[2018-08-29] MEDS: IPRATROPIUM/ALBUTEROL 3 ML AMPUL.NEB NEB SCH ×2 (03:16→07:33)
[2018-08-29 05:15] LABS: Basophils # (Auto) 0 K/mcL (0.0-0.3); Basophils % (Auto) 0.1 % (0.0-2.0); Eosinophils # (Auto) 0.1 K/mcL (0.0-0.7); Eosinophils % (Auto) 0.8 % (0.0-7.0); Granulocytes % (Auto) 65.4 % (38.0-78.0); Lymphocytes # (Auto) 3.3 K/mcL (1.5-4.8); Lymphocytes % (Auto) 27.1 % (15.5-49.0); Mean Cell Volume 95.7 fL (80.0-100.0); Mean Corpuscular HGB Conc 32.2 g/dL (31.0-36.0); Monocytes # (Auto) 0.8 K/mcL (0.1-0.9); Monocytes % (Auto) 6.6 % (1.0-12.0); Platelet Count 407 K/mcL (140-440); RBC 4.74 M/mcL (4.00-5.20); Red Cell Distribution Width 12.9 % (11.5-14.5)
[2018-08-29 05:56] LABS: ALT/SGPT 33 U/l (0-40); Albumin 3.4 gm/dL (3.2-5.2); Albumin/Globulin Ratio 1.3 (1.0-2.3); Alkaline Phosphatase 89 U/L (39-117); Bilirubin,Direct < 0.2 mg/dL (0.0-0.3); Blood Urea Nitrogen 16 mg/dl (8-23); Gamma Glutamyl Transpeptidase 38 U/L (5-36); Uric Acid 2.7 mg/dL (2.5-8.0)
[2018-08-29] MEDS: 0.9 % SODIUM CHLORIDE 10 ML SYRINGE IV SCH (06:15)
[2018-08-29] MEDS: metroNIDAZOLE 500 MG/100 ML BAG IV SCH (06:15)
[2018-08-29] MEDS: OMEPRAZOLE 20 MG CAPSULE PO SCH (07:54)
[2018-08-29] MEDS: LEVOTHYROXINE 88 MCG TABLET PO SCH (07:55)
[2018-08-29] MEDS: MELOXICAM 7.5 MG TABLET PO SCH (08:57)
[2018-08-29] MEDS: ESCITALOPRAM 20 MG TABLET PO SCH (08:58)
[2018-08-29] MEDS: MEMANTINE 10 MG TABLET PO SCH (08:58)
[2018-08-29] MEDS: ASPIRIN 81 MG TAB.CHEW PO SCH (08:58)
[2018-08-29] MEDS: DOCUSATE SODIUM 100 MG CAPSULE PO SCH (08:58)
[2018-08-29] MEDS: MECLIZINE 25 MG TABLET PO SCH (08:58)
[2018-08-29] MEDS: cefTRIAXone 1 GM VIAL IV SCH (08:59)
[2018-08-29] MEDS: lamoTRIgine 100 MG TABLET PO SCH (08:59)
[2018-08-29] MEDS: ENOXAPARIN 30 MG/0.3 ML SYRINGE SQ SCH (09:00)
[2018-08-29] MEDS: LIOTHYRONINE 5 MCG TABLET PO SCH (09:19)
--- NOTE | 2018-08-29 09:24 | XRay Report ---
INDICATION: History of COPD. Possible pneumonia. TECHNIQUE: PA and lateral upright chest x-ray COMPARISON: Previous chest x-rays dated 08/27/2018, 08/24/2018, 08/23/2018. FINDINGS:Prominent interstitial markings bilaterally. There is parenchymal density at both lung bases. These findings are essentially unchanged since 08/23/2018. No older chest x-rays are available for comparison. No acute or focal pulmonary parenchymal infiltrate. No parenchymal consolidation. No evidence for acute pneumonia. Heart size and vascularity are normal. No pulmonary edema. No pulmonary congestion. There is a small hiatal hernia. IMPRESSION: 1. Prominent interstitial markings and bibasilar parenchymal density 2. No acute infiltrate. No acute abnormality or significant interval change Interpreted and Authenticated by: Capo Pichardo 08/29/18
--- NOTE | 2018-08-29 12:09 | Discharge Summary ---
Medical - DS: Prov Patient information: Note initiated : 08/29/18 at 11:57 am Service Date, if different from initiated Date: [] Patient: Charlene Poole 63 y/o F admitted on 08/23/18 for Thinks has Pneumonia. Chief Complaint: [] Date of admission: 08/23/18 02:30 Discharge date: 08/29/18 Primary care physician: Cristian Pereira MD Consults: 08/23/18 Consult to Physician [CONS] Stat Comment: Consulting Provider: Adrian Potter Reason For Exam: Physician to Consult Discharging clinician: Carolyn Brown Medical - DS: Meds - Discharge Medications Prescriptions: Albuterol Sulfate [Proventil Hfa] 6.7 gm IH Q4HP PRN #1 [id number] PRN Reason: Shortness Of Breath Active and Home Medications: Home Medications escitalopram 10 mg tablet 20 mg PO QDAY 07/02/18 [History Confirmed 08/22/18 Last Taken Unknown] omeprazole 20 mg capsule,delayed release 20 mg PO BID 07/02/18 [History Confirmed 08/22/18 Last Taken Unknown] simvastatin 20 mg tablet 20 mg PO QPM 07/02/18 [History Confirmed 08/22/18 Last Taken Unknown] trazodone 100 mg tablet 100 mg PO HS 07/02/18 [History Confirmed 08/27/18 Last Taken Unknown] fluticasone propionate 50 mcg/actuation nasal spray,suspension 2 spray INTRANASAL QDAY #16 g 08/11/18 [Rx Confirmed 08/23/18 Last Taken Unknown] Aspirin [Lo-Dose Aspirin EC] 81 mg PO DAILY 08/22/18 [History Confirmed 08/22/18 Last Taken Unknown] Levothyroxine [Synthroid] 88 mcg PO QAMAC 08/22/18 [History Confirmed 08/22/18 Last Taken Unknown] Meloxicam 15 mg PO DAILY 08/22/18 [History Confirmed 08/22/18 Last Taken Unknown] Memantine [Namenda] 5 mg PO BID 08/22/18 [History Confirmed 08/22/18 Last Taken Unknown] Multivit-Min/Iron Fum/Folic AC [Ukkly-Vcewzqp-Hbfpgzrv Tablet] 1 each PO DAILY 08/22/18 [History Confirmed 08/22/18 Last Taken Unknown] lamoTRIgine [LaMICtal] 200 mg PO BID 08/22/18 [History Confirmed 08/24/18 Last Taken Unknown] Liothyronine [Cytomel] 5 mcg PO DAILY 08/23/18 [History Confirmed 08/23/18 Last Taken Unknown] Medical - DS: Hosp Hospital course: M Ms. Poole is a 63 year old F Who presents the ED after a week worth of shortness of breath coughing headache weakness. sHe states that hit her hard on Friday with body aches headache and the development of the cough productive of thick brown sputum. She has had shortness of breath as well. Her symptoms continued through the week with no improvement just worsening felt progressively weak. She feels an open time she started to feel better and then got worse she just stayed bad. Denies fever chills. No nausea vomiting diarrhea chest pain. In the ED she was found to be hypoxic at 84% on room air, with an elevated white blood cell count and pro-calcitonin. Vital signs are stable other than the oxygen saturations. Chest x-ray with interstitial filtrates. 08/24 Slept well. Productive cough. Shortness of breath slowly improving. Infectious markers improving 08/25 Patient seen and examined, no acute overnight events, feels better since admission. Labs are stable but is still on oxygen 08/26 pt seen eamined feels better, no new complaints still weak and remains on oxygen 08/27 Chest x-ray done today shows bibasilar infiltrates, recurrent aspiration. I discussed the case with the speech therapist the patient does not have any swallowing difficulties and is able to swallow quite well. There is a suspicion that because of a hiatal hernia she is having recurrent aspiration from her GERD. Patient is on proton pump inhibitor Educated the proper use of proton pump inhibitors, 30 minutes before a meal. Advised her to keep the head end of the bed elevated. 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 Pt breathing is unchanged, she remains on oxygen wbc trending down. 08/29 Pt seen examined, no acute complaints or concerns, no dizziness reported CT head is neg Xray chest this AM is clear stable for discharge, labs stable. In summary patient admitted to the hospital with a diagnosis of pneumonia, possible aspiration pneumonitis, she was treated with IV antibiotics, she also has COPD and was treated with bronchodilators and steroids. The patient completed a course of antibiotics while in the hospital. She does have reflux disease, and possible aspiration pneumonitis secondary to that. She has been advised to keep the head end of the bed elevated. She had an episode of dizziness in the hospital head CT was done which is negative. Discharge diagnosis: copd, pneumonia, - Time Spent with Patient Total time spent providing and/or coordinating discharge services: Greater than 30 minutes Medical - DS: Exam - Constitutional Vitals: Vital Signs Temp Pulse Pulse Resp BP BP Pulse Ox 08/29/18 07:36 85 18 91 08/29/18 07:24 98 F 18 126/69 90 08/29/18 03:29 98.2 F 74 18 116/64 95 08/28/18 22:47 98.5 F 77 18 109/55 92 08/28/18 19:58 97.7 F 84 20 106/68 91 08/28/18 19:18 80 18 95 08/28/18 19:12 81 18 08/28/18 16:00 98.1 F 20 114/68 91 08/28/18 14:05 84 16 08/28/18 12:00 98.4 F 20 110/63 91 Intake and Output 08/28/18 08/29/18 08/29/18 21:59 05:59 13:59 Intake Total 700 400 100 Output Total 900 175 300 Balance -200 225 -200 Intake: IV 100 100 100 Oral 600 300 Output: Void Amount 900 175 300 Other: Meal Lunch Breakfast Percent of Meal Consumed 100% 100% Feeding Ability Independent Urine Appearance Clear Urine Color Straw Urine Odor Normal # Voids 2 Weight 124 lb 8 oz Additional comments: Constitutional; Afebrile, cooperative, alert, not in distress. Respiratory system: Air Entry equal on both sides, No crackles or wheezing, no rhonchi. CVS- Rate rhythm regular, S1,S2 heard, no gallop, no rub. 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 Medical - DS: Data Labs on day of discharge: Labs from last 24 hours 08/29/18 08/29/18 04:08 04:08 WBC 12.2 H RBC 4.74 Hgb 14.6 Hct 45.4 MCV 95.7 MCH 30.8 MCHC 32.2 RDW 12.9 Plt Count 407 MPV 6.9 L Gran % 65.4 Lymph % (Auto) 27.1 [place] % (Auto) 6.6 Eos % (Auto) 0.8 Baso % (Auto) 0.1 Gran # 8.0 Lymph # (Auto) 3.3 [place] # (Auto) 0.8 Eos # (Auto) 0.1 Baso # (Auto) 0 Sodium 140 Potassium 3.9 Chloride 100 Carbon Dioxide 29 Anion Gap 11.0 BUN 16 Creatinine 0.7 GFR Calculation 92 Glucose 90 Uric Acid 2.7 Calcium 8.7 Phosphorus 4.0 Magnesium 2.3 Total Bilirubin 0.3 Direct Bilirubin < 0.2 GGT 38 H AST 18 ALT 33 Alkaline Phosphatase 89 Lactate Dehydrogenase 219 Total Protein 6.1 Albumin 3.4 Globulin 2.7 Albumin/Globulin Ratio 1.3 Triglycerides 80 Medical - DS: A/P - Patient/Caregiver Discharge Instructions Activity: increase activity as tolerated Diet: Regular Diet Additional Instructions: Please keep the head end of the bed elevated by around 30% to help with the reflux symptoms. Take prilosec 30mins before a meal Avoid all tobacco products Go to the ER if worsening symptoms, chest pain, shortness of breath or any other acute complaints. - Follow up Plan Follow up with: Cristian Pereira MD [Primary Care Provider] - 09/09/18 10:45 am Disposition: Home, Self-Care Prognosis: Fair Rehab Potential: Fair I certify that the patient requires SNF services: No Overall status at discharge: patient is progressing back to baseline Medical - DS: Qual - VTE Deep Vein Thrombosis/Pulmonary Embolism Present on Admission: No
== END 2018-08-29 13:40 | disposition home or self-care (01) | DRG 190 ==
LOC: ED 22:59 → MEDSUR 08-23 02:30
PROVIDERS: ADMIT Internal Medicine; ATTEND Internal Medicine

== ENCOUNTER 2019-01-15 17:58 | Inpatient (IN) ==
[2019-01-15 18:41] LABS: POC Blood Urea Nitrogen 14 mg/dl (8-23); POC CO2 25 mmol/L (22-30); POC Calcium, Ionized 0.99 mmol/L (1.16-1.32); POC Chloride 102 mmol/L (96-108); POC Creatinine 0.6 mg/dl (0.6-1.1); POC Glucose, Random 91 mg/dL (70-105); POC Potassium 3.4 mmol/L (3.3-5.1); POC Sodium 137 mmol/L (133-145)
[2019-01-15 19:06] LABS: ABG Methemoglobin 0.3 % (0.4-1.5); Total Hemoglobin 16.4 gm/dL (12.0-15.0); VBG Base Excess 4.1 (-2.0-2.0); VBG HCO3 26.5 mmol/L (24.0-28.0); VBG Oxygen Saturation 80.7 % (40.0-70.0); VBG PCO2 33.3 mmHg (41.0-51.0); VBG PH 7.52 U (7.32-7.42); VBG PO2 98 mmHg (25-40); VBG Total CO2 27.5 mmol/L (25.0-29.0)
[2019-01-15 19:11] LABS: Basophils # (Auto) 0 K/mcL (0.0-0.3); Basophils % (Auto) 0.3 % (0.0-2.0); Eosinophils # (Auto) 0.1 K/mcL (0.0-0.7); Eosinophils % (Auto) 1.1 % (0.0-7.0); Granulocytes % (Auto) 66.3 % (38.0-78.0); Hematocrit 52.5 % (36.0-48.0); Lymphocytes # (Auto) 2.7 K/mcL (1.5-4.8); Lymphocytes % (Auto) 24.6 % (15.5-49.0); Mean Cell Volume 93.2 fL (80.0-100.0); Mean Corpuscular HGB Conc 32.4 g/dL (31.0-36.0); Mean Platelet Volume 9.1 fL (7.4-10.4); Monocytes # (Auto) 0.8 K/mcL (0.1-0.9); Monocytes % (Auto) 7.7 % (1.0-12.0); Platelet Count 160 K/mcL (140-440); RBC 5.63 M/mcL (4.00-5.20); Red Cell Distribution Width 12.7 % (11.5-14.5); WBC 11.1 K/mcL (4.5-11.0)
[2019-01-15] MEDS ORDERED: LORazepam 2 MG/ML VIAL IV ONE (19:15)
--- NOTE | 2019-01-15 19:40 | Emergency Department Note ---
Anxiety HPI - General Chief Complaint: Shortness of Breath/Dyspnea Stated Complaint: Sob, anxiety, dizziness, vomiting Time Seen by Provider: 01/15/19 18:19 Source: patient, EMS Mode of arrival: EMS Limitations: altered mental status - History of Present Illness HPI Narrative: 63-year-old female in ED brought in via EMS. Patient called EMS because she went to lay down and had a dizzy spell began vomiting. Patient states this caused her shortness of breath and increased anxiety and she had 2 more episodes of vomiting. EMS provided patient 1 mg Versed to help decrease anxiety. This medication helped calm patient. Patient states she does have dementia and bipolar, and COPD. Patient can get extremely worked up while talking and has to mentally concentrated on her breathing and anxiety to slow her thoughts and words down. MD complaint: anxiety Onset (ago): hour(s) (1) Symptoms: other (anxiety) Severity: moderate Quality: constant Place: home History of similar episodes: Yes Provoking factors: emotional stress Improves with: medication, deep breaths, rest Worsens with: thinking about event Associated symptoms: Reports: shortness of breath, confusion, nausea/vomiting. Denies: chest pain, palpitations, diaphoresis, fever/chills, headaches, malaise - Related Data Home Medications: Home Medications Medication Instructions Recorded Confirmed Multivit-Min/Iron Fum/Folic AC 1 each PO DAILY 08/22/18 10/27/18 [Zllhs-[id number]-Cekfltoi Tablet] Previous Rx's Medication Instructions Recorded escitalopram 10 mg tablet 20 mg PO QDAY #180 tab 09/09/18 lamotrigine 100 mg tablet 200 mg PO BID 90 Days #360 tab 09/09/18 levothyroxine 88 mcg tablet 88 mcg PO QAMAC 90 Days #90 tab 09/09/18 liothyronine 5 mcg tablet 5 mcg PO DAILY #90 tab 09/09/18 meloxicam 15 mg tablet 15 mg PO DAILY 90 Days #90 tab 09/09/18 memantine 10 mg tablet 5 mg PO BID 90 Days #90 tab 09/09/18 trazodone 100 mg tablet 100 mg PO HS #90 tab 09/09/18 albuterol sulfate HFA 90 1 puff INHALATION Q4HP PRN #6.7 g 12/21/18 mcg/actuation aerosol inhaler omeprazole 20 mg capsule,delayed 20 mg PO BID #90 cap 01/15/19 release Allergies/Adverse Reactions: Allergies Allergy/AdvReac Type Severity Reaction Status Date / Time codeine AdvReac Mild constipation/abdominal Verified 01/15/19 17:59 cramping tape AdvReac Mild Other Uncoded 01/15/19 17:59 Review of Systems All systems ED: reviewed and negative except as stated. Past Medical History - Past Medical History PMFSH Narrative: All Active Problems (Last Reviewed 10/27/18 @ 10:36 by Cristian Pereira MD, FAAFP) Aspiration into lower respiratory tract (Acute) Hypoxia (Acute) Hypokalemia (Acute) Otalgia of left ear (Acute) Medical history: Reports: other (dementia) Psychiatric history: Reports: anxiety, depression, PTSD INTERNET SYSTEMS ADMINISTRATOR history: Reports: non-contributory - Social History smoking status: Current every day smoker Physical Exam Limitations: no limitations General appearance: alert, anxious, in no apparent distress Head: atraumatic, normocephalic, normal inspection Eye: Present: normal appearance, PERRL. Absent: conjunctival injection ENT: Present: mucous membranes moist, TM's normal bilaterally, normal external ear exam Neck: Present: normal inspection, full ROM, trachea midline. Absent: tenderness, meningismus, lymphadenopathy Chest: Present: normal inspection, symmetric chest wall rise. Absent: tenderness Respiratory: Present: normal lung sounds bilaterally. Absent: respiratory distress, rales/crackles, wheezes, stridor, accessory muscle use Cardiovascular: Present: regular rate, normal rhythm. Absent: systolic murmur, diastolic murmur Abdominal: Present: soft, normal bowel sounds. Absent: distention, tenderness, guarding, rebound, rigidity Extremities: Present: normal inspection. Absent: pedal edema Back: Present: normal inspection. Absent: tenderness, CVA tenderness (R), CVA tenderness (L) Neurological: Present: alert, oriented X3 Psychiatric: Present: normal affect, normal mood, anxious Skin: Present: warm, dry, intact, normal color. Absent: cool, diaphoretic Course Vital Signs Temperature 98.1 F 01/15/19 17:59 Pulse Rate 80 01/15/19 17:59 Respiratory Rate 20 01/15/19 17:59 Blood Pressure 149/137 01/15/19 17:59 Pulse Oximetry (%) 91 01/15/19 17:59 Temperature 98.1 F 01/15/19 17:59 Pulse Rate 75 01/15/19 21:58 Respiratory Rate 21 01/15/19 20:17 Blood Pressure 141/71 01/15/19 20:17 Pulse Oximetry (%) 90 01/15/19 21:58 Anxiety - MDM Narrative Medical decision making narrative: Patient currently lives at home alone and recently found out her dog has cancer. Her lives in [place] and was contacted and he advised he was concerned about patient taking the dog's medication due to her dementia. also advises patient has sun downers and it sounds as though she is close to her normal. He has had to come up and attend to her in the past And he is willing to do this if needed. Provided patient with 1 mg Ativan as she was becoming extremely anxious and hyperventilating. This medication causes patient to have decreased saturations and she needed to be placed on simple mask to keep her oxygen saturations up. Patient currently resting. Provided with patient current history, assessment and diagnostics. to continue patient care as it is this providers end of shift. - Lab Data Lab results reviewed: Yes I reviewed the patient's lab results. Result diagrams: 01/15/19 18:30 01/15/19 18:30 Lab Results 01/15/19 01/15/19 01/15/19 Range/Units 18:30 18:30 18:30 WBC 11.1 H (4.5-11.0) K/mcL RBC 5.63 H (4.00-5.20) M/mcL Hgb 17.0 H (12.0-15.0) g/dL Hct 52.5 H (36.0-48.0) % POC Hct 52.0 H (36.0-48.0) % MCV 93.2 (80.0-100.0) fL MCH 30.2 (26.0-34.0) pg MCHC 32.4 (31.0-36.0) g/dL RDW 12.7 (11.5-14.5) % Plt Count 160 (140-440) K/mcL MPV 9.1 (7.4-10.4) fL Gran % 66.3 (38.0-78.0) % Lymph % (Auto) 24.6 (15.5-49.0) % [place] % (Auto) 7.7 (1.0-12.0) % Eos % (Auto) 1.1 (0.0-7.0) % Baso % (Auto) 0.3 (0.0-2.0) % Gran # 7.3 (1.8-8.0) K/mcL Lymph # (Auto) 2.7 (1.5-4.8) K/mcL [place] # (Auto) 0.8 (0.1-0.9) K/mcL Eos # (Auto) 0.1 (0.0-0.7) K/mcL Baso # (Auto) 0 (0.0-0.3) K/mcL ABG Methemoglobin 0.3 L (0.4-1.5) % VBG pH 7.52 H (7.32-7.42) U VBG pCO2 33.3 L (41.0-51.0) mmHg VBG pO2 98 H (25-40) mmHg VBG HCO3 26.5 (24.0-28.0) mmol/L VBG Total CO2 27.5 (25.0-29.0) mmol/L VBG O2 Saturation 80.7 H (40.0-70.0) % VBG Base Excess 4.1 H (-2.0-2.0) Carboxyhemoglobin 17.2 H (0.0-1.5) % THgb Total Hemoglobin 16.4 H (12.0-15.0) gm/dL O2 Delivery Level Not Reportable POC Sodium 137 (133-145) mmol/L Sodium 142 (133-145) mmol/L POC Potassium 3.4 (3.3-5.1) mmol/L Potassium 3.8 (3.3-5.1) mmol/L POC Chloride 102 (96-108) mmol/L Chloride 100 (96-108) mmol/L Carbon Dioxide 24 (22-30) mmol/L POC Total CO2 25 (22-30) mmol/L Anion Gap 18.0 H (8-16) POC BUN 14 (8-23) mg/dl BUN 14 (8-23) mg/dl Creatinine 0.7 (0.6-1.1) mg/dl POC Creatinine 0.6 (0.6-1.1) mg/dl GFR Calculation 92 Glucose 88 (70-105) mg/dL POC Glucose 91 (70-105) mg/dL Calcium 9.0 (8.6-10.4) mg/dl POC WB Ioniz Calcium 0.99 L (1.16-1.32) mmol/L Total Bilirubin 0.2 (0.0-1.0) mg/dL AST 18 (0-37) U/l ALT 14 (0-40) U/l Alkaline Phosphatase 100 (39-117) U/L Total Protein 6.1 (5.9-8.4) gm/dL Albumin 3.8 (3.2-5.2) gm/dL Globulin 2.3 (2.2-3.7) gm/dL Albumin/Globulin Ratio 1.7 (1.0-2.3) Urine Color Urine Appearance Urine pH (5.0-9.0) Ur Specific [place] (1.000-1.035) Urine Protein (NEG) mg/dL Urine Glucose (UA) (NEG) mg/dL Urine Ketones (NEG) mg/dL Urine Occult Blood (<0.03) mg/dL Urine Nitrate (NEG) Urine Bilirubin (NEG) mg/dL Urine Urobilinogen (NEG) mg/dL Ur Leukocyte Esterase (NEG) /uL Urine RBC (0-1) /hpf Urine WBC (0-4) /hpf Ur Squamous Epith Cells (0-4) /hpf Urine Bacteria (0) /hpf Hyaline Casts (0-2) /lpf Urine Mucus (0) /hpf Ur Culture Indicated? 01/15/19 Range/Units 19:36 WBC (4.5-11.0) K/mcL RBC (4.00-5.20) M/mcL Hgb (12.0-15.0) g/dL Hct (36.0-48.0) % POC Hct (36.0-48.0) % MCV (80.0-100.0) fL MCH (26.0-34.0) pg MCHC (31.0-36.0) g/dL RDW (11.5-14.5) % Plt Count (140-440) K/mcL MPV (7.4-10.4) fL Gran % (38.0-78.0) % Lymph % (Auto) (15.5-49.0) % [place] % (Auto) (1.0-12.0) % Eos % (Auto) (0.0-7.0) % Baso % (Auto) (0.0-2.0) % Gran # (1.8-8.0) K/mcL Lymph # (Auto) (1.5-4.8) K/mcL [place] # (Auto) (0.1-0.9) K/mcL Eos # (Auto) (0.0-0.7) K/mcL Baso # (Auto) (0.0-0.3) K/mcL ABG Methemoglobin (0.4-1.5) % VBG pH (7.32-7.42) U VBG pCO2 (41.0-51.0) mmHg VBG pO2 (25-40) mmHg VBG HCO3 (24.0-28.0) mmol/L VBG Total CO2 (25.0-29.0) mmol/L VBG O2 Saturation (40.0-70.0) % VBG Base Excess (-2.0-2.0) Carboxyhemoglobin (0.0-1.5) % THgb Total Hemoglobin (12.0-15.0) gm/dL O2 Delivery Level POC Sodium (133-145) mmol/L Sodium (133-145) mmol/L POC Potassium (3.3-5.1) mmol/L Potassium (3.3-5.1) mmol/L POC Chloride (96-108) mmol/L Chloride (96-108) mmol/L Carbon Dioxide (22-30) mmol/L POC Total CO2 (22-30) mmol/L Anion Gap (8-16) POC BUN (8-23) mg/dl BUN (8-23) mg/dl Creatinine (0.6-1.1) mg/dl POC Creatinine (0.6-1.1) mg/dl GFR Calculation Glucose (70-105) mg/dL POC Glucose (70-105) mg/dL Calcium (8.6-10.4) mg/dl POC WB Ioniz Calcium (1.16-1.32) mmol/L Total Bilirubin (0.0-1.0) mg/dL AST (0-37) U/l ALT (0-40) U/l Alkaline Phosphatase (39-117) U/L Total Protein (5.9-8.4) gm/dL Albumin (3.2-5.2) gm/dL Globulin (2.2-3.7) gm/dL Albumin/Globulin Ratio (1.0-2.3) Urine Color Yellow Urine Appearance Hazy Urine pH 7.0 (5.0-9.0) Ur Specific [place] 1.009 (1.000-1.035) Urine Protein Neg (NEG) mg/dL Urine Glucose (UA) Negative (NEG) mg/dL Urine Ketones Neg (NEG) mg/dL Urine Occult Blood Neg (<0.03) mg/dL Urine Nitrate Neg (NEG) Urine Bilirubin Neg (NEG) mg/dL Urine Urobilinogen Neg (NEG) mg/dL Ur Leukocyte Esterase 75 A (NEG) /uL Urine RBC < 1 (0-1) /hpf Urine WBC 7 H (0-4) /hpf Ur Squamous Epith Cells < 1 (0-4) /hpf Urine Bacteria 0 (0) /hpf Hyaline Casts 2 (0-2) /lpf Urine Mucus Mod (0) /hpf Ur Culture Indicated? No Disposition Pt seen by POLICY SPECIALIST/PA only: No (Pa) Clinical Impression: Anxiety as acute reaction to exceptional stress Disposition: Home, Self-Care Condition: Fair Instructions: Anxiety (ED) Referrals: Cristian Pereira MD, FAAFP [Primary Care Provider] -
[2019-01-15 19:41] LABS: ALT/SGPT 14 U/l (0-40); AST/SGOT 18 U/l (0-37); Albumin 3.8 gm/dL (3.2-5.2); Albumin/Globulin Ratio 1.7 (1.0-2.3); Alkaline Phosphatase 100 U/L (39-117); Bilirubin,Total 0.2 mg/dL (0.0-1.0); Blood Urea Nitrogen 14 mg/dl (8-23); Carbon Dioxide 24 mmol/L (22-30); Chloride 100 mmol/L (96-108); Globulin 2.3 gm/dL (2.2-3.7); Glomerular Filtration Rate 92; Glucose 88 mg/dL (70-105)
[2019-01-15 21:17] LABS: Appearance,Urine HAZY; Bacteria,Urine 0 /hpf (0); Bilirubin,Urine NEG (NEG); Color,Urine YELLOW; Culture Indicated,Urine NO; Glucose,Urine (UA) NEGATIVE (NEG); Ketones,Urine NEG (NEG); Leukocyte Esterase,Urine 75 /uL (NEG); Mucus,Urine MOD /hpf (0); Nitrate,Urine NEG (NEG); Protein,Urine NEG (NEG); Specific Gravity,Urine 1.009 (1.000-1.035); Urine Blood NEG mg/dL (<0.03); Urine Hyaline Cast 2 /lpf (0-2); Urine RBC < 1 /hpf (0-1); Urine Squamous Epithelial Cell < 1 /hpf (0-4); Urine WBC 7 /hpf (0-4); Urobilinogen,Urine NEG (NEG)
--- NOTE | 2019-01-16 01:06 | Emergency Department Note ---
General Adult HPI - General Chief complaint: Shortness of Breath/Dyspnea Stated complaint: Sob, anxiety, dizziness, vomiting Time Seen by Provider: 01/15/19 18:19 Source: patient, EMS Mode of arrival: EMS Limitations: altered mental status - History of Present Illness HPI Narrative: See history and physical dictated by ROYA Tan. I agree with her documentation. I saw patient after care was transferred to ar. She remained quite restful. She was not able to be weaned off oxygen. Researching her old chart COPD is found present and is moderate in amount (per a previous read chest x-ray). - Related Data Home Medications Medication Instructions Recorded Confirmed Multivit-Min/Iron Fum/Folic AC 1 each PO DAILY 08/22/18 10/27/18 [Cluff-Xakzffp-Xfsocnyz Tablet] Previous Rx's Medication Instructions Recorded escitalopram 10 mg tablet 20 mg PO QDAY #180 tab 09/09/18 lamotrigine 100 mg tablet 200 mg PO BID 90 Days #360 tab 09/09/18 levothyroxine 88 mcg tablet 88 mcg PO QAMAC 90 Days #90 tab 09/09/18 liothyronine 5 mcg tablet 5 mcg PO DAILY #90 tab 09/09/18 meloxicam 15 mg tablet 15 mg PO DAILY 90 Days #90 tab 09/09/18 memantine 10 mg tablet 5 mg PO BID 90 Days #90 tab 09/09/18 trazodone 100 mg tablet 100 mg PO HS #90 tab 09/09/18 albuterol sulfate HFA 90 1 puff INHALATION Q4HP PRN #6.7 g 12/21/18 mcg/actuation aerosol inhaler omeprazole 20 mg capsule,delayed 20 mg PO BID #90 cap 01/15/19 release Allergies Allergy/AdvReac Type Severity Reaction Status Date / Time codeine AdvReac Mild constipation/abdominal Verified 01/15/19 17:59 cramping tape AdvReac Mild Other Uncoded 01/15/19 17:59 Past Medical History - Past Medical History Medical history: Reports: other (dementia) Psychiatric history: Reports: anxiety, depression, PTSD 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 - Social History smoking status: Current every day smoker Physical Exam Limitations: altered mental status General appearance: alert, anxious, in no apparent distress Course Vital Signs Temperature 98.1 F 01/15/19 17:59 Pulse Rate 80 01/15/19 17:59 Respiratory Rate 20 01/15/19 17:59 Blood Pressure 149/137 01/15/19 17:59 Pulse Oximetry (%) 91 01/15/19 17:59 Temperature 98.1 F 01/15/19 17:59 Pulse Rate 80 01/16/19 08:12 Respiratory Rate 16 01/16/19 05:35 Blood Pressure 129/70 01/16/19 08:08 Pulse Oximetry (%) 91 01/16/19 08:12 Medical Decision Making - MDM Narrative Medical decision making narrative: Patient received 1 mg of lorazepam but even 3 hours afterwards was sleeping peacefully and well but without oxygen is decreasing down as low as 85 to 86%, requiring 1 to 2 L of oxygen to help maintain above 90. There is also certainly a self-care deficit concern and concern long-term for this patient. Will observe to see if further time without the lorazepam changes her oxygenation. Several hours later there has been no change in her sleepiness or oxygen saturations. An EKG was performed which is negative for ACS. Troponin is obtained and was negative. Patient still resting peacefully and well but requiring oxygen. I will discuss her care with hospitalist. Patient rested peacefully through the night requiring oxygen to help maintain her sats above 92%. This morning awakens by or around 8 AM and is able to talk and interact appropriately. Upon removal of her mask and oxygen her saturations consistently drop to 86 and 87% on room air. Sometimes even as low as 82%. Plan had been for her to be able to go home and have a overnight oximetry test to qualify for oxygen. Now with her having saturations below 86% on room air necessitates having oxygen available at home during the day as well. Call out to hospitalist; await callback. Dr. Brown apparently has called back and accepted care of patient with assuming care and has put orders in now for her. - Lab Data Lab results reviewed: Yes I reviewed the patient's lab results. Result diagrams: 01/15/19 18:30 01/15/19 18:30 Lab Results 01/15/19 01/15/19 01/15/19 Range/Units 18:30 18:30 18:30 WBC 11.1 H (4.5-11.0) K/mcL RBC 5.63 H (4.00-5.20) M/mcL Hgb 17.0 H (12.0-15.0) g/dL Hct 52.5 H (36.0-48.0) % POC Hct 52.0 H (36.0-48.0) % MCV 93.2 (80.0-100.0) fL MCH 30.2 (26.0-34.0) pg MCHC 32.4 (31.0-36.0) g/dL RDW 12.7 (11.5-14.5) % Plt Count 160 (140-440) K/mcL MPV 9.1 (7.4-10.4) fL Gran % 66.3 (38.0-78.0) % Lymph % (Auto) 24.6 (15.5-49.0) % Long % (Auto) 7.7 (1.0-12.0) % Eos % (Auto) 1.1 (0.0-7.0) % Baso % (Auto) 0.3 (0.0-2.0) % Gran # 7.3 (1.8-8.0) K/mcL Lymph # (Auto) 2.7 (1.5-4.8) K/mcL Long # (Auto) 0.8 (0.1-0.9) K/mcL Eos # (Auto) 0.1 (0.0-0.7) K/mcL Baso # (Auto) 0 (0.0-0.3) K/mcL ABG Methemoglobin 0.3 L (0.4-1.5) % VBG pH 7.52 H (7.32-7.42) U VBG pCO2 33.3 L (41.0-51.0) mmHg VBG pO2 98 H (25-40) mmHg VBG HCO3 26.5 (24.0-28.0) mmol/L VBG Total CO2 27.5 (25.0-29.0) mmol/L VBG O2 Saturation 80.7 H (40.0-70.0) % VBG Base Excess 4.1 H (-2.0-2.0) Carboxyhemoglobin 17.2 H (0.0-1.5) % THgb Total Hemoglobin 16.4 H (12.0-15.0) gm/dL O2 Delivery Level Not Reportable POC Sodium 137 (133-145) mmol/L Sodium 142 (133-145) mmol/L POC Potassium 3.4 (3.3-5.1) mmol/L Potassium 3.8 (3.3-5.1) mmol/L POC Chloride 102 (96-108) mmol/L Chloride 100 (96-108) mmol/L Carbon Dioxide 24 (22-30) mmol/L POC Total CO2 25 (22-30) mmol/L Anion Gap 18.0 H (8-16) POC BUN 14 (8-23) mg/dl BUN 14 (8-23) mg/dl Creatinine 0.7 (0.6-1.1) mg/dl POC Creatinine 0.6 (0.6-1.1) mg/dl GFR Calculation 92 Glucose 88 (70-105) mg/dL POC Glucose 91 (70-105) mg/dL Calcium 9.0 (8.6-10.4) mg/dl POC WB Ioniz Calcium 0.99 L (1.16-1.32) mmol/L Total Bilirubin 0.2 (0.0-1.0) mg/dL AST 18 (0-37) U/l ALT 14 (0-40) U/l Alkaline Phosphatase 100 (39-117) U/L Troponin T (0-0.03) ng/ml Total Protein 6.1 (5.9-8.4) gm/dL Albumin 3.8 (3.2-5.2) gm/dL Globulin 2.3 (2.2-3.7) gm/dL Albumin/Globulin Ratio 1.7 (1.0-2.3) Urine Color Urine Appearance Urine pH (5.0-9.0) Ur Specific [place] (1.000-1.035) Urine Protein (NEG) mg/dL Urine Glucose (UA) (NEG) mg/dL Urine Ketones (NEG) mg/dL Urine Occult Blood (<0.03) mg/dL Urine Nitrate (NEG) Urine Bilirubin (NEG) mg/dL Urine Urobilinogen (NEG) mg/dL Ur Leukocyte Esterase (NEG) /uL Urine RBC (0-1) /hpf Urine WBC (0-4) /hpf Ur Squamous Epith Cells (0-4) /hpf Urine Bacteria (0) /hpf Hyaline Casts (0-2) /lpf Urine Mucus (0) /hpf Ur Culture Indicated? 01/15/19 01/16/19 Range/Units 19:36 01:45 WBC (4.5-11.0) K/mcL RBC (4.00-5.20) M/mcL Hgb (12.0-15.0) g/dL Hct (36.0-48.0) % POC Hct (36.0-48.0) % MCV (80.0-100.0) fL MCH (26.0-34.0) pg MCHC (31.0-36.0) g/dL RDW (11.5-14.5) % Plt Count (140-440) K/mcL MPV (7.4-10.4) fL Gran % (38.0-78.0) % Lymph % (Auto) (15.5-49.0) % Long % (Auto) (1.0-12.0) % Eos % (Auto) (0.0-7.0) % Baso % (Auto) (0.0-2.0) % Gran # (1.8-8.0) K/mcL Lymph # (Auto) (1.5-4.8) K/mcL Long # (Auto) (0.1-0.9) K/mcL Eos # (Auto) (0.0-0.7) K/mcL Baso # (Auto) (0.0-0.3) K/mcL ABG Methemoglobin (0.4-1.5) % VBG pH (7.32-7.42) U VBG pCO2 (41.0-51.0) mmHg VBG pO2 (25-40) mmHg VBG HCO3 (24.0-28.0) mmol/L VBG Total CO2 (25.0-29.0) mmol/L VBG O2 Saturation (40.0-70.0) % VBG Base Excess (-2.0-2.0) Carboxyhemoglobin (0.0-1.5) % THgb Total Hemoglobin (12.0-15.0) gm/dL O2 Delivery Level POC Sodium (133-145) mmol/L Sodium (133-145) mmol/L POC Potassium (3.3-5.1) mmol/L Potassium (3.3-5.1) mmol/L POC Chloride (96-108) mmol/L Chloride (96-108) mmol/L Carbon Dioxide (22-30) mmol/L POC Total CO2 (22-30) mmol/L Anion Gap (8-16) POC BUN (8-23) mg/dl BUN (8-23) mg/dl Creatinine (0.6-1.1) mg/dl POC Creatinine (0.6-1.1) mg/dl GFR Calculation Glucose (70-105) mg/dL POC Glucose (70-105) mg/dL Calcium (8.6-10.4) mg/dl POC WB Ioniz Calcium (1.16-1.32) mmol/L Total Bilirubin (0.0-1.0) mg/dL AST (0-37) U/l ALT (0-40) U/l Alkaline Phosphatase (39-117) U/L Troponin T < 0.01 (0-0.03) ng/ml Total Protein (5.9-8.4) gm/dL Albumin (3.2-5.2) gm/dL Globulin (2.2-3.7) gm/dL Albumin/Globulin Ratio (1.0-2.3) Urine Color Yellow Urine Appearance Hazy Urine pH 7.0 (5.0-9.0) Ur Specific [place] 1.009 (1.000-1.035) Urine Protein Neg (NEG) mg/dL Urine Glucose (UA) Negative (NEG) mg/dL Urine Ketones Neg (NEG) mg/dL Urine Occult Blood Neg (<0.03) mg/dL Urine Nitrate Neg (NEG) Urine Bilirubin Neg (NEG) mg/dL Urine Urobilinogen Neg (NEG) mg/dL Ur Leukocyte Esterase 75 A (NEG) /uL Urine RBC < 1 (0-1) /hpf Urine WBC 7 H (0-4) /hpf Ur Squamous Epith Cells < 1 (0-4) /hpf Urine Bacteria 0 (0) /hpf Hyaline Casts 2 (0-2) /lpf Urine Mucus Mod (0) /hpf Ur Culture Indicated? No - Radiology Data Radiology results reviewed: Yes I reviewed the patient's radiology results. - EKG Data EKG #1 EKG results narrative: No acute coronary syndrome findings. This ECG will be read by a medicinal plant picker. Disposition Pt seen by SCAFFOLD WORKER/PA only: No Clinical Impression: Anxiety as acute reaction to exceptional stress, Hyperventilation, Side effect of medication, Anxiety, generalized, Erythrocytosis, Interstitial pulmonary fibrosis, Hypoxia COPD (chronic obstructive pulmonary disease) Qualifiers: COPD type: unspecified COPD Qualified Code(s): J44.9 - Chronic obstructive pulmonary disease, unspecified Nausea and vomiting Qualifiers: Vomiting type: unspecified Vomiting Intractability: non-intractable Qualified Code(s): R11.2 - Nausea with vomiting, unspecified Disposition: Still a Patient Condition: Fair Referrals: Cristian Pereira MD, FAAFP [Primary Care Provider] -
[2019-01-16] MEDS ORDERED: ALBUTEROL SULFATE 2.5 MG/3 ML NEBULIZER NEB ONE (01:40)
--- NOTE | 2019-01-16 03:25 | XRay Report ---
CLINICAL INFORMATION: shortness of breath COMPARISON: 08/29/2018 FINDINGS: A known small hiatal hernia is not well visualized on this particular film. Cardiomediastinal silhouette and pulmonary vessels are, otherwise, normal. Lung volumes are elevated and there is mild interstitial fibrosis throughout both lungs that similar to previous study. Mild stranding fibrosis in the right infrahilar region also unchanged. No new pulmonary abnormalities. No effusions IMPRESSION: COPD and mild diffuse interstitial fibrosis. Consider pulmonary consult Small hiatal hernia poorly visualized. Interpreted and Authenticated by: Capo Herrera 01/16/19
[2019-01-16] MEDS ORDERED: IPRATROPIUM/ALBUTEROL 3 ML AMPUL.NEB NEB ONE (08:43)
[2019-01-16] MEDS ORDERED: AZITHROMYCIN 250 MG TABLET PO ONE (08:44)
[2019-01-16] MEDS ORDERED: predniSONE 20 MG TABLET PO ONE (08:44)
[2019-01-16] MEDS ORDERED: ONDANSETRON 4 MG/2 ML VIAL IV PRN (10:59)
[2019-01-16] MEDS ORDERED: ACETAMINOPHEN 325 MG TABLET PO PRN (10:59)
[2019-01-16] MEDS ORDERED: MAGNESIUM HYDROXIDE 30 ML ORAL.SUSP PO PRN (10:59)
[2019-01-16] MEDS ORDERED: FLEETS ADULT ENEMA PR PRN (10:59)
[2019-01-16] MEDS ORDERED: NALOXONE HCL 0.4 MG/ML VIAL IV PRN (10:59)
[2019-01-16 11:37] LABS: Hematocrit 53.3 % (36.0-48.0); Hemoglobin 17.2 g/dL (12.0-15.0); Mean Cell Volume 93.3 fL (80.0-100.0); Mean Corpuscular HGB Conc 32.3 g/dL (31.0-36.0); Mean Platelet Volume 8.9 fL (7.4-10.4); Platelet Count 156 K/mcL (140-440); RBC 5.72 M/mcL (4.00-5.20); Red Cell Distribution Width 12.6 % (11.5-14.5); WBC 10.6 K/mcL (4.5-11.0)
[2019-01-16] MEDS: IPRATROPIUM/ALBUTEROL 3 ML AMPUL.NEB NEB SCH ×4 (11:52→23:44)
--- NOTE | 2019-01-16 12:00 | Internal Med History&Physical ---
Medical - H&P: HPI Patient information: Note initiated : 01/16/19 at 11:57 am Service Date, if different from initiated Date: [] Patient: Charlene Poole a 63 y/o F admitted on 01/16/19 for Sob, anxiety, dizziness, vomiting. Chief Complaint: [] History of present illness: Ms. Poole is a 63 year old F history of bipolar disorder active smoker COPD presents to the emergency room today for evaluation of nausea and vomiting that has been bothering her for 1 day. She was also feeling weak and dizzy. The patient was having a panic attack apparently and was given some sedatives in the emergency room. Patient responded to treatment she slept overnight in the emergency room however had increased oxygen needs. According to the ED provider after she woke up this morning they were unable to wean her off oxygen the caro long was therefore admitted to the hospital for further management. On my evaluation the patient notes that she has some reflux disease and complained about some nausea and vomiting x2 yesterday otherwise she has no complaints she does have shortness of breath on exertion she denies any cough or sputum production she denies any fever denies any headaches admits to dizziness no difficulty in swallowing but does have reflux symptoms denies any abdominal pain denies any urinary complaints or bowel complaints denies any new joint pains or skin rashes. She does have a history of bipolar disorder and anxiety. In the emergency room patient was hemodynamically stable when she was sleeping she needed up to 4 L of oxygen otherwise was not tachypneic. Labs showed mild leukocytosis elevated RBC count chemistries unremarkable. Chest x-ray negative patient is being admitted to the hospital for further management All systems: reviewed and no additional remarkable complaints except as stated (As per HPI rest negative) Medical - H&P: PMH Medical history: Medical History (Last Updated 01/16/19 @ 04:07 by Zion Winn DO) Interstitial pulmonary fibrosis (Chronic) Cigarette smoker (Chronic) Anxiety, generalized (Chronic) Bipolar disorder (manic depression) (Chronic) Depression, major, recurrent (Chronic) GERD (gastroesophageal reflux disease) (Chronic) Hypothyroidism, acquired (Chronic) COPD (chronic obstructive pulmonary disease) (Chronic) Aspiration into lower respiratory tract (Resolved) Hypokalemia (Resolved) Hypoxia (Resolved) Otalgia of left ear (Resolved) Family history: reviewed and not pertinent Medical - H&P: Meds Home Medications Medication Instructions Recorded Confirmed Type Multivit-Min/Iron Fum/Folic AC 1 each PO DAILY 08/22/18 10/27/18 History [Zwzch-Poikxkl-Kotanwiq Tablet] escitalopram 10 mg tablet 20 mg PO QDAY #180 tab 09/09/18 10/27/18 Rx lamotrigine 100 mg tablet 200 mg PO BID 90 Days #360 tab 09/09/18 10/27/18 Rx levothyroxine 88 mcg tablet 88 mcg PO QAMAC 90 Days #90 tab 09/09/18 10/27/18 Rx liothyronine 5 mcg tablet 5 mcg PO DAILY #90 tab 09/09/18 10/27/18 Rx meloxicam 15 mg tablet 15 mg PO DAILY 90 Days #90 tab 09/09/18 10/27/18 Rx memantine 10 mg tablet 5 mg PO BID 90 Days #90 tab 09/09/18 10/27/18 Rx trazodone 100 mg tablet 100 mg PO HS #90 tab 09/09/18 10/27/18 Rx albuterol sulfate HFA 90 1 puff INHALATION Q4HP PRN #6.7 g 12/21/18 Rx mcg/actuation aerosol inhaler omeprazole 20 mg capsule,delayed 20 mg PO BID #90 cap 01/15/19 Rx release Allergies Allergy/AdvReac Type Severity Reaction Status Date / Time codeine AdvReac Mild constipation/abdominal Verified 01/15/19 17:59 cramping tape AdvReac Mild Other Uncoded 01/15/19 17:59 Medical - H&P: Exam - Constitutional Vitals: Temp Pulse Resp BP Pulse Ox 98.1 F 88 20 129/70 91 01/16/19 11:23 01/16/19 11:23 01/16/19 11:23 01/16/19 11:23 01/16/19 11:23 Exam: GENERAL: The patient is a well-developed, well-nourished in no apparent distress. Is alert and oriented x3. VITAL SIGNS: Reviewed and as noted elsewhere. HEENT: Head is normocephalic and atraumatic. Extraocular muscles are intact. Pupils are equal, round, and reactive to light. Nares appeared normal. Mouth appears any without lesions. Mucous membranes are moist. NECK: Normal to inspection, Supple, No lymphadenopathy or thyromegaly. LUNGS: Air entry equal on both sides but reduced on both sides, prolonged expiratory phase noted, no wheezing, crackles or rhonchi noted. No accessory muscles of respiration HEART: Regular rate and rhythm normal, S1 and S2 heard, no Gallop, S3 or Rub Noted, No Gross murmur heard. ABDOMEN: Soft, nontender, and nondistended. Positive bowel sounds. No hepatosplenomegaly was noted. EXTREMITIES: No cyanosis, clubbing, rash, lesions or edema. NEUROLOGIC: Cranial nerves II through XII are grossly intact. Motor and Sensory System Grossly Intact PSYCHIATRIC: Normal affect, patient appears anxious and hyperactive SKIN: No ulceration or wounds noted, No jaundice, No rash noted. Medical - H&P: Reslt - Labs CBC & Chem 7: 01/16/19 11:08 01/15/19 18:30 Labs: Short CBC 01/15/19 01/16/19 Range/Units 18:30 11:08 WBC 11.1 H 10.6 (4.5-11.0) K/mcL Hgb 17.0 H 17.2 H (12.0-15.0) g/dL Hct 52.5 H 53.3 H (36.0-48.0) % Plt Count 160 156 (140-440) K/mcL BMP 01/15/19 18:30 Sodium 142 Potassium 3.8 Chloride 100 Carbon Dioxide 24 BUN 14 Creatinine 0.7 Glucose 88 Calcium 9.0 Cardiac Enzymes 01/16/19 Range/Units 01:45 Troponin T < 0.01 (0-0.03) ng/ml Liver Function 01/15/19 Range/Units 18:30 Total Bilirubin 0.2 (0.0-1.0) mg/dL AST 18 (0-37) U/l ALT 14 (0-40) U/l Alkaline Phosphatase 100 (39-117) U/L Albumin 3.8 (3.2-5.2) gm/dL Urine 01/15/19 Range/Units 19:36 Urine Color Yellow Urine Appearance Hazy Urine pH 7.0 (5.0-9.0) Ur Specific [place] 1.009 (1.000-1.035) Urine Protein Neg (NEG) mg/dL Urine Glucose (UA) Negative (NEG) mg/dL - ABG Interpretation ABG results: 01/15/19 18:30 ABG Methemoglobin 0.3 L VBG pH 7.52 H VBG pCO2 33.3 L VBG pO2 98 H VBG HCO3 26.5 VBG Total CO2 27.5 VBG O2 Saturation 80.7 H VBG Base Excess 4.1 H Medical - H&P: A/P - Narrative A/P Narrative: A/P Acute exacerbation of COPD Acute hypoxic Respiratory failure Panic Attack Reflux disease bipolar disorder [place] abuse Hypothyroidism Plan Admit to med surg Steroids, zithromax and duonebs Oxygen supplementation to keep osat > 90 CTA neg for PE but does have hiatal hernia IV PPI for now monitor closely, wean off oxygen as tolerated Resume home meds/psych meds once verified. DVT hep sq Full code Social History - Tobacco smoking status: Current every day smoker - Alcohol alcohol intake frequency: does not drink - Substance use substance use type: does not use
[2019-01-16 12:05] LABS: ALT/SGPT 14 U/l (0-40); AST/SGOT 18 U/l (0-37); Albumin 3.9 gm/dL (3.2-5.2); Albumin/Globulin Ratio 1.7 (1.0-2.3); Alkaline Phosphatase 92 U/L (39-117); Bilirubin,Direct < 0.2 mg/dL (0.0-0.3); Bilirubin,Total 0.4 mg/dL (0.0-1.0); Blood Urea Nitrogen 10 mg/dl (8-23); Calcium 9.5 mg/dl (8.6-10.4); Carbon Dioxide 29 mmol/L (22-30); Chloride 100 mmol/L (96-108); Globulin 2.3 gm/dL (2.2-3.7); Glomerular Filtration Rate 78; Glucose 179 mg/dL (70-105); Lactate Dehydrogenase 203 U/L (94-250); Phosphorous 3.4 mg/dL (2.7-4.5); Triglycerides 56 mg/dl (<150); Uric Acid 5.1 mg/dL (2.5-8.0)
[2019-01-16 12:30] LABS: Lymphocytes % 13 % (15-49); Monocytes % (Manual) 4 % (1-12); Platelet Estimate NORMAL (NORMAL); RBC Morphology NORMAL (NORMAL); Segmented Neutrophils % 83 % (38-78)
--- NOTE | 2019-01-16 13:26 | Cat Scan Report ---
CLINICAL INFORMATION: COMPARISON: None. TECHNIQUE: 80 cc of Isovue-300 were injected intravenously. Using SmartPrep to maximize pulmonary artery opacification, 2.5 mm helical slices were obtained from the lung apices through the lung bases. Following reconstruction, 2.5 mm sagittal, coronal, and axial reformations were processed. The exam was reviewed at mediastinal, lung, and bone windows. The exam was performed using radiation dose optimization techniques including, but not limited to, automated exposure control, adjustment of the mA and/or kV according to patient size and use of iterative reconstruction technique. FINDINGS: The pulmonary arteries are well-opacified and normal in diameter. No evidence of embolus. Thoracic aorta is normal in diameter with diffuse intimal thickening. The heart is borderline enlarged. Moderate hiatal hernia appreciated. There are no abnormally enlarged lymph nodes in the mediastinal hilar or axillary regions. Lung windows show mild chronic bronchitis with elevated lung volumes wall thickening/dilatation of the bronchi. There is also mosaic perfusion pattern in both lungs. In this patient, mosaic perfusion pattern likely reflects small airways disease. There is subsegmental atelectasis/scarring in the apical posterior left upper lobe segment. Minor scarring is seen in the paramediastinal right middle lobe and lingula. No diffuse/regional infiltrates and no nodules. Pleural spaces are normal. Bones and soft tissues of the chest wall unremarkable. Images through abdomen show no abnormality IMPRESSION: 1. No evidence of pulmonary embolus 2. Chronic bronchitis with mosaic perfusion pattern. In this case, the pattern almost certainly reflects chronic associated bronchiolitis 3. Subsegmental atelectasis/scar in the apical posterior segment left upper lobe. There is also mild scarring in paramediastinal right middle lobe lingula and posterior basilar segment left lower lobe. 4. Moderate hiatal hernia Interpreted and Authenticated by: Capo Herrera 01/16/19
[2019-01-16] MEDS: 0.9 % SODIUM CHLORIDE 10 ML SYRINGE IV SCH ×2 (15:00→21:24)
[2019-01-16] MEDS: ESOMEPRAZOLE 40 MG VIAL IV SCH (15:03)
[2019-01-16] MEDS ORDERED: traZODone HCL 100 MG TABLET PO SCH (21:00)
[2019-01-16] MEDS: lamoTRIgine 100 MG TABLET PO SCH (21:22)
[2019-01-16] MEDS: HEPARIN 5,000 UNIT/ML VIAL SQ SCH (21:23)
[2019-01-16] MEDS: MEMANTINE 10 MG TABLET PO SCH (21:23)
[2019-01-17] MEDS: 0.9 % SODIUM CHLORIDE 10 ML SYRINGE IV SCH (04:05)
[2019-01-17] MEDS: IPRATROPIUM/ALBUTEROL 3 ML AMPUL.NEB NEB SCH ×3 (04:09→11:44)
[2019-01-17 05:57] LABS: Basophils # (Auto) 0 K/mcL (0.0-0.3); Basophils % (Auto) 0.2 % (0.0-2.0); Eosinophils # (Auto) 0.1 K/mcL (0.0-0.7); Granulocytes % (Auto) 63.1 % (38.0-78.0); Hematocrit 52.7 % (36.0-48.0); Hemoglobin 16.9 g/dL (12.0-15.0); Lymphocytes # (Auto) 3.8 K/mcL (1.5-4.8); Lymphocytes % (Auto) 29.4 % (15.5-49.0); Mean Cell Volume 94.5 fL (80.0-100.0); Mean Corpuscular HGB Conc 32.1 g/dL (31.0-36.0); Mean Platelet Volume 9.4 fL (7.4-10.4); Monocytes # (Auto) 0.8 K/mcL (0.1-0.9); Monocytes % (Auto) 6.3 % (1.0-12.0); Platelet Count 156 K/mcL (140-440); RBC 5.57 M/mcL (4.00-5.20); Red Cell Distribution Width 12.3 % (11.5-14.5)
[2019-01-17 06:21] LABS: ALT/SGPT 14 U/l (0-40); AST/SGOT 17 U/l (0-37); Albumin 3.7 gm/dL (3.2-5.2); Albumin/Globulin Ratio 1.5 (1.0-2.3); Alkaline Phosphatase 94 U/L (39-117); Bilirubin,Direct < 0.2 mg/dL (0.0-0.3); Bilirubin,Total 0.3 mg/dL (0.0-1.0); Blood Urea Nitrogen 10 mg/dl (8-23); Calcium 9.1 mg/dl (8.6-10.4); Carbon Dioxide 28 mmol/L (22-30); Chloride 102 mmol/L (96-108); Globulin 2.4 gm/dL (2.2-3.7); Glomerular Filtration Rate 96; Glucose 98 mg/dL (70-105); Lactate Dehydrogenase 205 U/L (94-250); Phosphorous 3.5 mg/dL (2.7-4.5); Triglycerides 70 mg/dl (<150)
[2019-01-17] MEDS ORDERED: LEVOTHYROXINE 88 MCG TABLET PO SCH (07:30)
[2019-01-17] MEDS: ESOMEPRAZOLE 40 MG VIAL IV SCH (07:53)
[2019-01-17] MEDS ORDERED: LIOTHYRONINE 5 MCG TABLET PO SCH (09:00)
[2019-01-17] MEDS ORDERED: MULTIVIT,THER IRON,CA,FA & MIN 1 TABLET PO SCH (09:00)
[2019-01-17] MEDS ORDERED: AZITHROMYCIN 250 MG TABLET PO SCH (09:00)
[2019-01-17] MEDS ORDERED: ESCITALOPRAM 10 MG TABLET PO SCH (09:00)
[2019-01-17] MEDS: HEPARIN 5,000 UNIT/ML VIAL SQ SCH (09:37)
[2019-01-17] MEDS: MEMANTINE 10 MG TABLET PO SCH (09:38)
[2019-01-17] MEDS: lamoTRIgine 100 MG TABLET PO SCH (09:39)
--- NOTE | 2019-01-17 12:39 | Discharge Summary ---
Medical - DS: Prov Patient information: Note initiated : 01/17/19 at 12:31 pm Service Date, if different from initiated Date: [] Patient: Charlene Poole 63 y/o F admitted on 01/16/19 for Sob, anxiety, dizziness, vomiting. Chief Complaint: [] Date of admission: 01/16/19 10:50 Discharge date: 01/17/19 Primary care physician: Cristian Pereira M.D., F.A.A.F.P. Consults: 01/16/19 Consult to Physician [CONS] Stat Comment: Consulting Provider: Carolyn Brwon Reason For Exam: Physician to Consult Discharging clinician: Carolyn Brown Medical - DS: Meds - Discharge Medications Prescriptions: Azithromycin [Zithromax] 250 mg PO DAILY #3 tab Ipratropium/Albuterol [Duoneb] 3 ml NEB Q6H #120 ampul.neb predniSONE [Prednisone] 40 mg PO QAC #6 tab Active and Home Medications: Home Medications Multivit-Min/Iron Fum/Folic AC [Mtntd-Jesmurg-Ubnvnany Tablet] 1 each PO DAILY 08/22/18 [History Confirmed 01/16/19 Last Taken 01/16/19] escitalopram 10 mg tablet 20 mg PO QDAY #180 tab 09/09/18 [Rx Confirmed 01/16/19 Last Taken 01/16/19] lamotrigine 100 mg tablet 200 mg PO BID 90 Days #360 tab 09/09/18 [Rx Confirmed 01/16/19 Last Taken 01/16/19] levothyroxine 88 mcg tablet 88 mcg PO QAMAC 90 Days #90 tab 09/09/18 [Rx Confirmed 01/16/19 Last Taken 01/16/19] liothyronine 5 mcg tablet 5 mcg PO DAILY #90 tab 09/09/18 [Rx Confirmed 01/16/19 Last Taken 01/16/19] meloxicam 15 mg tablet 15 mg PO DAILY 90 Days #90 tab 09/09/18 [Rx Confirmed 01/16/19 Last Taken 01/16/19] memantine 10 mg tablet 5 mg PO BID 90 Days #90 tab 09/09/18 [Rx Confirmed 01/16/19 Last Taken 01/16/19] trazodone 100 mg tablet 100 mg PO HS #90 tab 09/09/18 [Rx Confirmed 01/16/19 Last Taken 01/16/19] albuterol sulfate HFA 90 mcg/actuation aerosol inhaler 1 puff INHALATION Q4HP PRN #6.7 g 12/21/18 [Rx Confirmed 01/16/19 Last Taken 01/16/19] omeprazole 20 mg capsule,delayed release 20 mg PO BID #90 cap 01/15/19 [Rx Confirmed 01/16/19 Last Taken 01/16/19] Medical - DS: Hosp Hospital course: Ms. Poole is a 63 year old F history of bipolar disorder active smoker COPD presents to the emergency room today for evaluation of nausea and vomiting that has been bothering her for 1 day. She was also feeling weak and dizzy. The patient was having a panic attack apparently and was given some sedatives in the emergency room. Patient responded to treatment she slept overnight in the emergency room however had increased oxygen needs. According to the ED provider after she woke up this morning they were unable to wean her off oxygen the patient was therefore admitted to the hospital for further management. On my evaluation the patient notes that she has some reflux disease and complained about some nausea and vomiting x2 yesterday otherwise she has no complaints she does have shortness of breath on exertion she denies any cough or sputum production she denies any fever denies any headaches admits to dizziness no difficulty in swallowing but does have reflux symptoms denies any abdominal pain denies any urinary complaints or bowel complaints denies any new joint pains or skin rashes. She does have a history of bipolar disorder and anxiety. In the emergency room patient was hemodynamically stable when she was sleeping she needed up to 4 L of oxygen otherwise was not tachypneic. Labs showed mild leukocytosis elevated RBC count chemistries unremarkable. Chest x-ray negative patient is being admitted to the hospital for further management 01/17 Patient seen and examined, no acute overnight events, feels back to baseline. Her respiratory status is back to baseline, she has no wheezing air entry is good on both sides. Her oxygen level is down to 2 L now. Initial anticipation at the time of admission was patient would stay at least a couple of days however looks like at this time patient is back to her baseline status. I do not expect further improvement at this time patient is a chronic smoker. She will likely need oxygen in the long-term. Her oxygen saturation to 82% on room air at rest, she is 90 to 91% with ambulation with 2 L. Patient will be discharged home with home oxygen at 2 L continuous 30/12 She will complete the course of bronchitis, advised the patient to follow-up with the PCP Discharge diagnosis: copd exacerbation - Time Spent with Patient Total time spent providing and/or coordinating discharge services: Greater than 30 minutes Medical - DS: Exam - Constitutional Vitals: Vital Signs Temp Pulse Pulse Resp BP Pulse Ox 01/17/19 12:00 98.4 F 20 116/78 92 01/17/19 11:45 75 18 91 01/17/19 10:50 20 92 01/17/19 08:00 80 L 01/17/19 07:17 98.8 F 20 107/75 92 01/17/19 04:18 98.7 F 69 18 124/73 01/16/19 23:31 98.4 F 62 24 H 139/79 91 01/16/19 18:37 98.3 F 80 28 H 106/62 91 01/16/19 15:55 98.5 F 20 115/65 91 01/16/19 15:26 88 20 Intake and Output 01/16/19 01/17/19 01/17/19 21:59 05:59 13:59 Output Total 525 750 Balance -525 -750 Output: Void Amount 525 750 Other: Meal Lunch Breakfast Percent of Meal Consumed 100% 75% Urine Appearance Clear Clear Urine Color Bright Yellow Bright Yellow Urine Odor Normal Normal # Voids 5 Weight 114 lb 8 oz Additional comments: Constitutional; Afebrile, cooperative, alert, not in distress. Eyes- No icterus, , No periorbital swelling Ears- Ext ear normal, hearing normal to conversation. Neck- Midline trachea, supple Respiratory system: Air Entry equal on both sides, No crackles or wheezing, no rhonchi. CVS- Rate rhythm regular, S1,S2 heard, no gallop, no rub. Abdomen- Soft nontender abdomen, no organomegaly, no tenderness, no guarding or rigidity, CHIEF WARDEN- AOOx3, moving all extremities, no gross focal deficit noted. Medical - DS: Data Labs on day of discharge: Labs from last 24 hours 01/17/19 01/17/19 04:05 04:05 WBC 13.0 H RBC 5.57 H Hgb 16.9 H Hct 52.7 H MCV 94.5 MCH 30.3 MCHC 32.1 RDW 12.3 Plt Count 156 MPV 9.4 Gran % 63.1 Lymph % (Auto) 29.4 [place] % (Auto) 6.3 Eos % (Auto) 1.0 Baso % (Auto) 0.2 Gran # 8.2 H Lymph # (Auto) 3.8 [place] # (Auto) 0.8 Eos # (Auto) 0.1 Baso # (Auto) 0 Sodium 144 Potassium 3.6 Chloride 102 Carbon Dioxide 28 Anion Gap 14.0 BUN 10 Creatinine 0.6 GFR Calculation 96 Glucose 98 Uric Acid 4.0 Calcium 9.1 Phosphorus 3.5 Magnesium 2.0 Total Bilirubin 0.3 Direct Bilirubin < 0.2 GGT 14 AST 17 ALT 14 Alkaline Phosphatase 94 Lactate Dehydrogenase 205 Total Protein 6.1 Albumin 3.7 Globulin 2.4 Albumin/Globulin Ratio 1.5 Triglycerides 70 Medical - DS: A/P - Patient/Caregiver Discharge Instructions Activity: increase activity as tolerated Diet: Regular Diet Additional Instructions: Do not smoke cigarettes Use oxygen at all times as prescribed Follow-up with your PCP in 1 week, your PCP can reassess the need for oxygen at the end of the month Please take your medications as prescribed I have made no changes to your chronic home medication list, you have been given a short course of azithromycin and steroids Go to the emergency room if you have any headache chest pain shortness of breath fever or any other acute concern - Follow up Plan Follow up with: Cristian Pereira MD, FAAFP [Primary Care Provider] - Disposition: Home, Self-Care Prognosis: Fair Rehab Potential: Fair I certify that the patient requires SNF services: No Overall status at discharge: patient is progressing back to baseline Medical - DS: Qual - VTE Deep Vein Thrombosis/Pulmonary Embolism Present on Admission: No
== END 2019-01-17 15:00 | disposition home or self-care (01) | DRG 190 ==
LOC: ED 17:58 → MEDSUR 01-16 10:50
PROVIDERS: ADMIT Internal Medicine; ATTEND Internal Medicine